=== PATIENT | male | born 1965 | race Caucasian/White ===

== ENCOUNTER 2023-08-11 19:05 | Emergency (ER) | payer BC ==
--- NOTE | 2023-08-11 19:11 | ED ---
Chest Pain HPI - General Stated Complaint: Chest Pain Time Seen by Provider: 08/11/23 19:06 Source: RN notes reviewed, old records reviewed Mode of arrival: EMS Limitations: no limitations - History of Present Illness Initial Comments: This is a 58-year-old male to the ER for evaluation today. Patient presents today for evaluation regards to s significant syncopal event. Patient passed out when receiving bad news that his father was recently diagnosed with cancer. Patient states he had a stressful few days and he came up to the hospital today without taking his home medications. Patient is very anxious here in the emergency department sweaty and short of breath also having chest pain MD Complaint: chest pain, other (Syncopal event) -: hour(s) Onset: during rest Pain Location: substernal, left chest Pain Radiation: none Severity: severe Severity scale (1-10): 9 Quality: tightness Consistency: constant Improves With: nothing Worsens With: nothing Context: recent illness Anginal Symptoms: sense of impending doom Other Symptoms: palpitations Treatments Prior to Arrival: none - Related Data Home Medications Medication Instructions Recorded Confirmed Atorvastatin [Lipitor] 80 mg PO DAILY 08/13/23 08/13/23 Cyclobenzaprine [Flexeril] 5 - 10 mg PO HS 08/13/23 08/13/23 Empagliflozin [Jardiance] 25 mg PO DAILY 08/13/23 08/13/23 Gabapentin 600 mg PO TID 08/13/23 08/13/23 INSULIN LISPRO (HumaLOG) [humaLOG] 10 units SQ AC-TID 08/13/23 08/13/23 Insulin NPH Human Isophane 40 unit SQ BID 08/13/23 08/13/23 [humuLIN N Kwikpen] Liraglutide [Victoza 3-Kamlesh] 1.8 mg PO DAILY 08/13/23 08/13/23 Lisinopril-Hctz 20-12.5 mg 1 tab PO DAILY 08/13/23 08/13/23 [Zestoretic 20-12.5] Metoprolol Tartrate [Lopressor] 25 mg PO BID 08/13/23 08/13/23 Omeprazole 20 mg PO DAILY 08/13/23 08/13/23 Tamsulosin HCl [Flomax] 0.4 mg PO DAILY 08/13/23 08/13/23 metFORMIN HCL 1,000 mg PO BID 08/13/23 08/13/23 methocarbamoL [Robaxin-750] 750 mg PO TID 08/13/23 08/13/23 oxyCODONE HCL [oxyCODONE HCL (IR)] 10 mg PO TID 08/13/23 08/13/23 traMADol HCL 50 mg PO Q4H PRN 08/13/23 08/13/23 Previous Rx's Medication Instructions Recorded Aspirin 81 mg PO DAILY #30 tab 08/16/23 Clopidogrel [Plavix] 75 mg PO DAILY #30 tablet 08/16/23 Ezetimibe [Zetia] 10 mg PO DAILY #30 tab 08/16/23 Allergies Allergy/AdvReac Type Severity Reaction Status Date / Time Penicillins Allergy Anaphylaxis Verified 08/13/23 17:43 Review of Systems ROS Statement: Those systems with pertinent positive or pertinent negative responses have been documented in the HPI. ROS Other: All systems not noted in ROS Statement are negative. EKG Findings - EKG Comments: EKG Findings:: EKG is sinus tachycardia 120 UT 165 QRS 89 QTc 498 - EKG Results: EKG: interpreted by NORMAN General Exam General appearance: alert, anxious, in distress Head exam: Present: atraumatic, normocephalic, normal inspection Eye exam: Present: normal appearance, PERRL, EOMI. Absent: scleral icterus, conjunctival injection, periorbital swelling ENT exam: Present: normal exam, mucous membranes moist Neck exam: Present: normal inspection. Absent: tenderness, meningismus, lymphadenopathy Respiratory exam: Present: normal lung sounds bilaterally. Absent: respiratory distress, wheezes, rales, rhonchi, stridor Cardiovascular Exam: Present: regular rate, normal rhythm, normal heart sounds. Absent: systolic murmur, diastolic murmur, rubs, gallop, clicks GI/Abdominal exam: Present: soft, normal bowel sounds. Absent: distended, tenderness, guarding, rebound, rigid Extremities exam: Present: normal inspection, full ROM, normal capillary refill. Absent: tenderness, pedal edema, joint swelling, calf tenderness Back exam: Present: normal inspection Neurological exam: Present: alert, oriented X3, CN II-XII intact Psychiatric exam: Present: normal affect, normal mood Skin exam: Present: warm, dry, intact, normal color. Absent: rash Course Vital Signs 08/11/23 08/11/23 08/11/23 19:06 20:11 22:37 Temperature 99 F Pulse Rate 134 H 102 H 94 Respiratory 20 16 17 Rate Blood Pressure 192/120 137/86 121/92 O2 Sat by Pulse 97 95 95 Oximetry - Reevaluation(s) Reevaluation #1: 08/11/23 19:39 Medical records reviewed Reevaluation #2: Patient has no change in symptoms here in the ER mildly improved chest pain Reevaluation #3: Patient informed of results and questions answered Reevaluation #4: Was pt. sent in by a medical professional or institution (, MAUREEN, DEVOPS SOLUTIONS ARCHITECT, urgent care, hospital, or senior care...) When possible be specific @ -no Did you speak to anyone other than the patient for history (EMS, parent, family, police, friend...)? What history was obtained from this source @ -no Did you review nursing and triage notes (agree or disagree)? Why? @ -agree Are old charts reviewed (outside hosp., previous admission, EMS record, old EKG, old radiological studies, urgent care reports/EKG's, senior care records)? Report findings @ -yes Differential Diagnosis (chest pain, altered mental status, abdominal pain women, abdominal pain men, vaginal bleeding, weakness, fever, dyspnea, syncope, headache, dizziness, GI bleed, back pain, seizure, CVA, palpatations, mental health, musculoskeletal)? @ -prior EKG interpreted by me (3pts min.). @ -yes X-rays interpreted by me (1pt min.). @ -yes negative for acute disease CT interpreted by me (1pt min.). @ -no U/S interpreted by me (1pt. min.). @ -no What testing was considered but not performed or refused? (CT, X-rays, U/S, labs)? Why? @ -none What meds were considered but not given or refused? Why? @ -none Did you discuss the management of the patient with other professionals (professionals i.e. MAUREEN Rodriguez, DEVOPS SOLUTIONS ARCHITECT, lab, RT, psych nurse, social problems specialist, divorce lawyer, teacher, commercial loan officer, medical case manager)? Give summary @ -no Was smoking cessation discussed for >3mins.? @ -no Was critical care preformed (if so, how long)? @ -no Were there social determinants of health that impacted care today? How? (Homelessness, low income, unemployed, alcoholism, drug addiction, transportation, low edu. Level, literacy, decrease access to med. care, [facility], rehab)? @ -none Was there de-escalation of care discussed even if they declined (Discuss DNR or withdrawal of care, Hospice)? DNR status @ -no What co-morbidities impacted this encounter? (DM, HTN, Smoking, COPD, CAD, Cancer, CVA, ARF, Chemo, Hep., AIDS, mental health diagnosis, sleep apnea, morbid obesity)? @ -none Was patient admitted / discharged? Hospital course, mention meds given and route, prescriptions, significant lab abnormalities, going to OR and other pertinent info. @ - 58 male to ER for evaluation of chest pain. Significant chest pain which is improved here in the ER, patient has normal testing and can be discharged home Discharge Undiagnosed new problem with uncertain prognosis? @ -no Drug Therapy requiring intensive monitoring for toxicity (Heparin, Nitro, Insulin, Cardizem)? @ -no Were any procedures done? @ -no Diagnosis/symptom? @ -Chest pain Acute, or Chronic, or Acute on Chronic? @ -Acute Uncomplicated (without systemic symptoms) or Complicated (systemic symptoms)? @ -Complicated Side effects of treatment? @ -no Exacerbation, Progression, or Severe Exacerbation? @ -exacerbation Poses a threat to life or bodily function? How? (Chest pain, [place], [place], pneumonia, PE, COPD, DKA, ARF, appy, cholecystitis, CVA, Diverticulitis, Homicidal, Suicidal, threat to staff... and all critical care pts) @ -yes with chest pain Reevaluation #5: Differential Chest Pain: Stable Angina, Unstable Angina, STEMI, NSTEMI Aortic Dissection, Pneumothorax, Musculoskeletal, Esophageal Spasm GERD, Cholecystitis, Pancreatitis, Zoster, this is not meant to be an all-inclusive list. Chest Pain MDM - MDM 58 male to ER for evaluation of chest pain. Significant chest pain which is improved here in the ER, patient has normal testing and can be discharged home Disposition Clinical Impression: Atypical chest pain, Chest pain, Syncope, Hyperglycemia Disposition: HOME SELF-CARE Condition: Fair Instructions (If sedation given, give patient instructions): Chest Pain (ED), Syncope (ED), Diabetic Hyperglycemia (ED) Is patient prescribed a controlled substance at d/c from ED?: No Referrals: Nonstaff,Physician [REFERRING] - 1-2 days Time of Disposition: 22:30
[2023-08-11 19:24] LABS: Basophils # (A) 0.1 k/uL (0-0.2); Basophils % (A) 1 %; Eosinophils # (A) 0.1 k/uL (0-0.7); Eosinophils % (A) 1 %; HGB 16.6 gm/dL (13.0-17.5); Lymphocytes # (A) 3.8 k/uL (1.0-4.8); Lymphocytes % (A) 47 %; MCH 30.5 pg (25.0-35.0); MCHC 31.8 g/dL (31.0-37.0); MCV 95.8 fL (80.0-100.0); Mean Platelet Volume 7.6; Monocytes # (A) 0.5 k/uL (0-1.0); Monocytes % (A) 6 %; Neutrophils # (A) 3.5 k/uL (1.3-7.7); Neutrophils % (A) 43 %; Platelet Count 208 k/uL (150-450); RBC 5.43 m/uL (4.30-5.90); RDW 13.3 % (11.5-15.5); WBC 8.1 k/uL (3.8-10.6)
[2023-08-11] MEDS: MORPHINE SULFATE 4 MG/ML SYRINGE IV STA (19:27)
[2023-08-11] MEDS: SODIUM CHLORIDE 0.9% 1,000 ML IV STA ×2 (19:28→22:24)
[2023-08-11] MEDS: LABETALOL 5 MG/ML VIAL MDV IVP STA (19:28)
[2023-08-11] MEDS: LORazepam 2 MG/ML INJ IV STA (19:28)
[2023-08-11 19:33] VITALS: TEMP 99
[2023-08-11 19:45] LABS: ALT 175 U/L (4-49); AST 97 U/L (17-59); African American GFR (CKD) >90 (>60 ml/min/1.73 sqM); Albumin 4.5 g/dL (3.5-5.0); Alkaline Phosphatase 226 U/L (38-126); Anion Gap 13 mmol/L; Blood Urea Nitrogen 20 mg/dL (9-20); Calcium 9.9 mg/dL (8.4-10.2); Carbon Dioxide 24 mmol/L (22-30); Chloride 97 mmol/L (98-107); Magnesium 1.6 mg/dL (1.6-2.3); Non-African American GFR(CKD) >90 (>60 ml/min/1.73 sqM); Phosphorus 4.1 mg/dL (2.5-4.5); Potassium 4.5 mmol/L (3.5-5.1); Sodium 134 mmol/L (137-145); Total Bilirubin 0.6 mg/dL (0.2-1.3); Total Protein 7.4 g/dL (6.3-8.2)
[2023-08-11 19:54] LABS: NT-Pro-B-Type Natriuretic Pept 108 pg/mL
[2023-08-11 19:56] LABS: Glucose 553 mg/dL (74-99)
[2023-08-11 20:12] LABS: INR 0.9 (<1.2); Partial Thromboplastin Time 22.6 sec (22.0-30.0); Prothrombin Time 9.9 sec (10.0-12.5)
--- NOTE | 2023-08-11 20:39 | CT ---
EXAMINATION TYPE: CT angio chest CT DLP: 742.3 mGycm, Automated exposure control for dose reduction was used. DATE OF EXAM: 08/11/2023 8:26 PM COMPARISON: None CLINICAL INDICATION:Male, 58 years old with history of cp; chest pain and collapse. TECHNIQUE/CONTRAST: CTA scan of the thorax is performed with IV Contrast, patient injected with 100ml mL of Isovue 370, M IP images are created and reviewed these are created on a separate workstation.. FINDINGS: Pulmonary Artery: There is no evidence for a filling defect within the pulmonary vasculature to sugge st acute pulmonary embolism. The pulmonary artery is of normal size. Lungs/Pleura: No evidence of focal consolidation, pleural effusion or pneumothorax. Mild centrilobula r emphysema changes are seen throughout the lungs. Right intrafissural lymph node series 411 image 80 . Airway: Large airways are patent. Heart: Heart is within normal limits for size. Increased density within the left anterior distending coronary artery bypass correlate is stent graft versus Atherosclerotic calcifications Vasculature: No evidence of aortic aneurysm. Mediastinum: No gross evidence of adenopathy. Musculoskeletal: Mild degenerative disc disease changes are present throughout the thoracolumbar spin e., partially visualized fixation hardware in the lower spine. Soft Tissues: Unremarkable. Lower neck: No significant findings. Upper Abdomen: Diffuse low-attenuation to the liver parenchyma.. IMPRESSION: 1. No evidence of pulmonary embolism. 2. Mild emphysema. 3. Hepatic steatosis. 4. Severe coronary artery atherosclerosis versus stent graft.
[2023-08-11 21:25] LABS: Appearance,Urine Clear (Clear); Bilirubin,Urine Negative (Negative); Blood,Urine Negative (Negative); Color,Urine Colorless; Glucose,Urine (UA) 4+ (Negative); Ketones,Urine Negative (Negative); Leukocyte Esterase,Urine Negative (Negative); Nitrite,Urine Negative (Negative); Protein,Urine Negative (Negative); Urobilinogen,Urine <2.0 mg/dL (<2.0)
[2023-08-11] MEDS: INSULIN REGULAR 100 UNIT/ML VIAL (IM/SQ) SQ ONE (22:30)
[2023-08-11] MEDS: INSULIN REGULAR 100 UNIT/ML VIAL (IV) IV ONE (22:32)
[2023-08-11 22:46] LABS: Glucose,Whole Blood 387 mg/dL (70-110)
[2023-08-11 22:51] VITALS: BP 121/92; PULSE 94; RESP 17
== END 2023-08-11 22:49 | disposition home or self-care (01) ==
LOC: EC 19:05
DX: R07.89 Other chest pain (principal); R55 Syncope and collapse; R73.9 Hyperglycemia, unspecified; R00.0 Tachycardia, unspecified; Z88.0 Allergy status to penicillin
CPT/HCPCS: 99285 ×2; 96374 ×2; 96375 ×2; 96361 ×2; 36415; 93005; 83880; 80053; 83735; 84100; 84484; 85025; 85610; 85730; 81003; 71275; J2060; J2270; Q9967

== ENCOUNTER 2023-08-13 15:49 | Observation (INO) | payer BC ==
[2023-08-13 15:54] LABS: Glucose,Whole Blood 136 mg/dL (70-110)
--- NOTE | 2023-08-13 16:07 | ED ---
Neuro HPI - General Chief Complaint: Neuro Symptoms/Deficit Stated Complaint: Neuro Time Seen by Provider: 08/13/23 16:03 Source: patient, RN notes reviewed Mode of arrival: ambulatory Limitations: no limitations - History of Present Illness Is the patient presenting with stroke symptoms?: Yes Initial Comments: 58-year-old male with history of heart disease with 3 stents who does not has been having chest pain over the last week or so who had a sudden onset about 15 minutes prior to arrival of slurred speech and right facial asymmetry and numbness to his right arm. 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 No focal weakness of his upper or lower extremities at this time. No prior history of stroke he states he is not on any blood thinners at this time. - Related Data Home Medications: Home Medications Medication Instructions Recorded Confirmed Atorvastatin [Lipitor] 80 mg PO DAILY 08/13/23 08/13/23 Cyclobenzaprine [Flexeril] 5 - 10 mg PO HS 08/13/23 08/13/23 Empagliflozin [Jardiance] 25 mg PO DAILY 08/13/23 08/13/23 Gabapentin 600 mg PO TID 08/13/23 08/13/23 INSULIN LISPRO (HumaLOG) [humaLOG] 10 units SQ AC-TID 08/13/23 08/13/23 Insulin NPH Human Isophane 40 unit SQ BID 08/13/23 08/13/23 [humuLIN N Luz] Liraglutide [Victoza 3-Kamlesh] 1.8 mg PO DAILY 08/13/23 08/13/23 Lisinopril-Hctz 20-12.5 mg 1 tab PO DAILY 08/13/23 08/13/23 [Zestoretic 20-12.5] Metoprolol Tartrate [Lopressor] 25 mg PO BID 08/13/23 08/13/23 Omeprazole 20 mg PO DAILY 08/13/23 08/13/23 Tamsulosin HCl [Flomax] 0.4 mg PO DAILY 08/13/23 08/13/23 metFORMIN HCL 1,000 mg PO BID 08/13/23 08/13/23 methocarbamoL [Robaxin-750] 750 mg PO TID 08/13/23 08/13/23 oxyCODONE HCL [oxyCODONE HCL (IR)] 10 mg PO TID 08/13/23 08/13/23 traMADol HCL 50 mg PO Q4H PRN 08/13/23 08/13/23 Allergies/Adverse Reactions: Allergies Allergy/AdvReac Type Severity Reaction Status Date / Time Penicillins Allergy Anaphylaxis Verified 08/13/23 17:43 Review of Systems ROS Statement: Those systems with pertinent positive or pertinent negative responses have been documented in the HPI. ROS Other: All systems not noted in ROS Statement are negative. General Exam - General Exam Comments Initial Comments: This is a well-developed well-nourished awake alert oriented x 4 male Limitations: no limitations General appearance: alert, anxious Head exam: Present: atraumatic, normocephalic, normal inspection Eye exam: Present: other (Right eye appears normal with extraocular motion intact pupils responsive to light) ENT exam: Present: normal exam, other Neck exam: Present: normal inspection, full ROM, other Respiratory exam: Present: normal lung sounds bilaterally. Absent: respiratory distress, wheezes, rales, rhonchi, stridor Cardiovascular Exam: Present: regular rate, normal rhythm, normal heart sounds. Absent: systolic murmur, diastolic murmur, rubs, gallop, clicks GI/Abdominal exam: Present: soft, normal bowel sounds. Absent: distended, tenderness, guarding, rebound, rigid Rectal exam: Present: deferred Extremities exam: Present: normal inspection, full ROM, normal capillary refill. Absent: tenderness, pedal edema, joint swelling, calf tenderness Back exam: Present: normal inspection Neurological exam: Present: alert, oriented X3. Absent: CN II-XII intact Psychiatric exam: Present: anxious Skin exam: Present: warm, dry, intact, normal color. Absent: rash Stroke MDM - Lab Data Result diagrams: 08/13/23 16:12 08/13/23 16:12 Lab Results 08/13/23 08/13/23 08/13/23 Range/Units 15:52 16:12 16:12 WBC 9.1 (3.8-10.6) k/uL RBC 5.62 (4.30-5.90) m/uL Hgb 16.9 (13.0-17.5) gm/dL Hct 52.6 (39.0-53.0) % MCV 93.4 (80.0-100.0) fL MCH 30.0 (25.0-35.0) pg MCHC 32.2 (31.0-37.0) g/dL RDW 13.5 (11.5-15.5) % Plt Count 218 (150-450) k/uL MPV 7.5 Neutrophils % 57 % Lymphocytes % 33 % Monocytes % 6 % Eosinophils % 1 % Basophils % 1 % Neutrophils # 5.2 (1.3-7.7) k/uL Lymphocytes # 3.0 (1.0-4.8) k/uL Monocytes # 0.5 (0-1.0) k/uL Eosinophils # 0.1 (0-0.7) k/uL Basophils # 0.1 (0-0.2) k/uL PT 10.3 (10.0-12.5) sec INR 0.9 (<1.2) APTT 22.2 (22.0-30.0) sec Sodium (137-145) mmol/L Potassium (3.5-5.1) mmol/L Chloride (98-107) mmol/L Carbon Dioxide (22-30) mmol/L Anion Gap mmol/L BUN (9-20) mg/dL Creatinine (0.66-1.25) mg/dL Est GFR (CKD-EPI)AfAm (>60 ml/min/1.73 sqM) Est GFR (CKD-EPI)NonAf (>60 ml/min/1.73 sqM) Glucose (74-99) mg/dL POC Glucose (mg/dL) 136 H (70-110) mg/dL POC Glu Motion Picture Camera Lens Technician ID Kenrick Bishop Calcium (8.4-10.2) mg/dL Total Bilirubin (0.2-1.3) mg/dL AST (17-59) U/L ALT (4-49) U/L Alkaline Phosphatase (38-126) U/L Creatine Kinase (55-170) U/L Troponin I (0.000-0.034) ng/mL Total Protein (6.3-8.2) g/dL Albumin (3.5-5.0) g/dL 08/13/23 08/13/23 Range/Units 16:12 16:12 WBC (3.8-10.6) k/uL RBC (4.30-5.90) m/uL Hgb (13.0-17.5) gm/dL Hct (39.0-53.0) % MCV (80.0-100.0) fL MCH (25.0-35.0) pg MCHC (31.0-37.0) g/dL RDW (11.5-15.5) % Plt Count (150-450) k/uL MPV Neutrophils % % Lymphocytes % % Monocytes % % Eosinophils % % Basophils % % Neutrophils # (1.3-7.7) k/uL Lymphocytes # (1.0-4.8) k/uL Monocytes # (0-1.0) k/uL Eosinophils # (0-0.7) k/uL Basophils # (0-0.2) k/uL PT (10.0-12.5) sec INR (<1.2) APTT (22.0-30.0) sec Sodium 137 (137-145) mmol/L Potassium 4.2 (3.5-5.1) mmol/L Chloride 102 (98-107) mmol/L Carbon Dioxide 25 (22-30) mmol/L Anion Gap 10 mmol/L BUN 16 (9-20) mg/dL Creatinine 0.80 (0.66-1.25) mg/dL Est GFR (CKD-EPI)AfAm >90 (>60 ml/min/1.73 sqM) Est GFR (CKD-EPI)NonAf >90 (>60 ml/min/1.73 sqM) Glucose 144 H (74-99) mg/dL POC Glucose (mg/dL) (70-110) mg/dL POC Glu Motion Picture Camera Lens Technician ID Calcium 10.3 H (8.4-10.2) mg/dL Total Bilirubin 0.6 (0.2-1.3) mg/dL AST 211 H (17-59) U/L ALT 231 H (4-49) U/L Alkaline Phosphatase 163 H (38-126) U/L Creatine Kinase 193 H (55-170) U/L Troponin I 0.075 H* (0.000-0.034) ng/mL Total Protein 7.4 (6.3-8.2) g/dL Albumin 4.5 (3.5-5.0) g/dL - NIH Stroke Scale 1a. Level of Consciousness: (0) alert 1b. LOC Questions: (0) answers correctly 1c. LOC Commands: (0) performs tasks correctly 2. Best Gaze: (0) normal 3. Visual: (0) no visual loss 4. Facial Palsy: (2) partial paralysis 5a. Motor Arm Left: (0) no drift 5b. Motor Arm Right: (0) no drift 6a. Motor Leg Left: (0) no drift 6b. Motor Leg Right: (0) no drift 7. Limb Ataxia: (0) absent 8. Sensory: (0) normal 9. Best Language: (1) mild/moderate aphasia 10. Dysarthria: (0) normal 11. Extinction/Inattention: (0) no abnormality - Medical Decision Making The patient is getting improvement in his symptoms the presentation appears to be consistent with a TIA I had previously discussed the case with Dr. Peralta and the patient is not a thrombolytic candidate. I did discuss the case with Paulina broussard for Dr. Salas the patient will be admitted with neurological consultation and oral medication treatment. Was pt. sent in by a medical professional or institution (, PA, PAYLOADER OPERATOR, urgent care, hospital, or residential...) When possible be specific @ -No Did you speak to anyone other than the patient for history (EMS, parent, family, police, friend...)? What history was obtained from this source @ -No Did you review nursing and triage notes (agree or disagree)? Why? @ -I reviewed and agree with nursing and triage notes Were old charts reviewed (outside hosp., previous admission, EMS record, old EKG, old radiological studies, urgent care reports/EKG's, residential records)? Report findings @ -No old charts were reviewed Differential Diagnosis (chest pain, altered mental status, abdominal pain women, abdominal pain men, vaginal bleeding, weakness, fever, dyspnea, syncope, headache, dizziness, GI bleed, back pain, seizure, CVA, palpatations, mental health, musculoskeletal)? @ -CVA, TIA EKG interpreted by me (3pts min.). @ -As above EKG interpreted by me sinus tachycardia 115 OK interval 177 QRS duration 74 QT/QTc 438/506 nonspecific T wave configuration X-rays interpreted by me (1pt min.). @ -X-ray interpreted by me no evidence of acute processes seen increased markings noted. CT interpreted by me (1pt min.). @ -CT scan with and without contrast interpreted by me no evidence of significant stenosis no acute processes] U/S interpreted by me (1pt. min.). @ -None done What testing was considered but not performed or refused? (CT, X-rays, U/S, labs)? Why? @ -None What meds were considered but not given or refused? Why? @ -None Did you discuss the management of the patient with other professionals ( professionals i.e. , PA, PAYLOADER OPERATOR, lab, RT, psych nurse, social media marketer, digester capper, teacher, title officer, casework supervisor)? Give summary @ -Dr. Peralta will SOV for Dr. Salas's service Was smoking cessation discussed for >3mins.? @ -No Was critical care preformed (if so, how long)? @ -39 minutes Were there social determinants of health that impacted care today? How? (Homelessness, low income, unemployed, alcoholism, drug addiction, transportation, low edu. Level, literacy, decrease access to med. care, detention, rehab)? @ -No Was there de-escalation of care discussed even if they declined (Discuss DNR or withdrawal of care, Hospice)? DNR status @ -No What co-morbidities impacted this encounter? (DM, HTN, Smoking, COPD, CAD, Cancer, CVA, ARF, Chemo, Hep., AIDS, mental health diagnosis, sleep apnea, morbid obesity)? @ -History of coronary artery disease Was patient admitted / discharged? Hospital course, mention meds given and route, prescriptions, significant lab abnormalities, going to OR and other pertinent info. @ -Hospital course the patient was admitted for inpatient evaluation Undiagnosed new problem with uncertain prognosis? @ -No Drug Therapy requiring intensive monitoring for toxicity (Heparin, Nitro, Insulin, Cardizem)? @ -No Were any procedures done? @ -No Diagnosis/symptom? @ -Acute TIA Acute, or Chronic, or Acute on Chronic? @ -Acute Uncomplicated (without systemic symptoms) or Complicated (systemic symptoms)? @ -Default Side effects of treatment? @ -No Exacerbation, Progression, or Severe Exacerbation? @ -No Poses a threat to life or bodily function? How? (Chest pain, [place], [place], pneumonia, PE, COPD, DKA, ARF, appy, cholecystitis, CVA, Diverticulitis, Homicidal, Suicidal, threat to staff... and all critical care pts) @ -Potential, TIA - Radiology Data interpreted by me: CT interpreted by me no evidence of acute obstructive process no mass effect. - EKG Data -: EKG Interpreted by Me EKG shows normal: sinus rhythm Past Medical History Past Medical History: Diabetes Mellitus, Hypertension Additional Past Surgical History / Comment(s): 2 back surgeries, Smoking Status: Never smoker Past Alcohol Use History: Occasional Past Drug Use History: None Reported Course Vital Signs 08/13/23 08/13/23 08/13/23 15:52 15:55 16:10 Temperature 98.2 F Pulse Rate 115 H 112 H 110 H Respiratory 18 18 18 Rate Blood Pressure 149/96 150/106 O2 Sat by Pulse 96 96 Oximetry 08/13/23 08/13/23 08/13/23 16:25 16:40 16:55 Temperature Pulse Rate 111 H 110 H 106 H Respiratory 18 18 18 Rate Blood Pressure 140/89 137/86 O2 Sat by Pulse 96 98 96 Oximetry 08/13/23 08/13/23 08/13/23 17:05 17:25 17:36 Temperature Pulse Rate 105 H 105 H 104 H Respiratory 18 18 18 Rate Blood Pressure 122/80 118/85 O2 Sat by Pulse 95 94 L 96 Oximetry 08/13/23 08/13/23 08/13/23 17:40 17:55 18:30 Temperature Pulse Rate 102 H 106 H 104 H Respiratory 18 18 18 Rate Blood Pressure 140/89 139/86 O2 Sat by Pulse 95 96 Oximetry 08/13/23 08/13/23 18:55 18:57 Temperature Pulse Rate 103 H 120 H Respiratory 18 18 Rate Blood Pressure 139/99 O2 Sat by Pulse 94 L 94 L Oximetry - Reevaluation(s) Reevaluation #1: 08/13/23 19:12 I did reevaluate the patient multiple occasions he is getting improvement in his symptoms. Critical Care Time Critical Care Time: Yes Total Critical Care Time: 39 Disposition Clinical Impression: Transient cerebral ischemia Disposition: ADMITTED IP TO THIS [facility] Condition: Stable Referrals: None,Stated [Primary Care Provider] - 1-2 days Decision Date: 08/13/23 Decision Time: 19:19
--- NOTE | 2023-08-13 16:25 | CT ---
EXAMINATION TYPE: CODE STROKE: CT brain wo contr DATE OF EXAM: 08/13/2023 COMPARISON: None available. HISTORY: Code stroke. CT DLP: 1182.4 mGycm Automated exposure control for dose reduction was used. FINDINGS: There is no acute intracranial hemorrhage, mass effect, or midline shift identified. The ventricles and sulci are within normal limits in size. 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 IMPRESSION: No acute intracranial hemorrhage, mass effect, or midline shift is seen.
[2023-08-13 16:36] LABS: Basophils # (A) 0.1 k/uL (0-0.2); Basophils % (A) 1 %; Eosinophils # (A) 0.1 k/uL (0-0.7); Eosinophils % (A) 1 %; HCT 52.6 % (39.0-53.0); HGB 16.9 gm/dL (13.0-17.5); Lymphocytes % (A) 33 %; MCHC 32.2 g/dL (31.0-37.0); MCV 93.4 fL (80.0-100.0); Mean Platelet Volume 7.5; Monocytes # (A) 0.5 k/uL (0-1.0); Monocytes % (A) 6 %; Neutrophils # (A) 5.2 k/uL (1.3-7.7); Neutrophils % (A) 57 %; Platelet Count 218 k/uL (150-450); RBC 5.62 m/uL (4.30-5.90); RDW 13.5 % (11.5-15.5); WBC 9.1 k/uL (3.8-10.6)
[2023-08-13] MEDS: ASPIRIN 81 MG PO STA (16:36)
[2023-08-13 16:49] LABS: INR 0.9 (<1.2); Partial Thromboplastin Time 22.2 sec (22.0-30.0); Prothrombin Time 10.3 sec (10.0-12.5)
--- NOTE | 2023-08-13 16:53 | XR ---
EXAMINATION TYPE: XR chest 2V DATE OF EXAM: 08/13/2023 4:48 PM CLINICAL INDICATION:Male, 58 years old with history of altered mental status; [facility] COMPARISON: None TECHNIQUE: XR chest 2V Frontal and lateral views of the chest. FINDINGS: Lungs/Pleura: Low lung volumes are present. There is no evidence of pleural effusion, focal consolida tion, or pneumothorax. Pulmonary vascularity: Unremarkable. Heart/mediastinum: Cardiomediastinal silhouette is unremarkable. Musculoskeletal: No acute osseous pathology. Other findings: None IMPRESSION: Low lung volumes with a generalized hazy appearance which could represent atelectasis versus pulmonar y edema correlate with serum BNP.
[2023-08-13 16:56] LABS: ALT 231 U/L (4-49); AST 211 U/L (17-59); African American GFR (CKD) >90 (>60 ml/min/1.73 sqM); Albumin 4.5 g/dL (3.5-5.0); Alkaline Phosphatase 163 U/L (38-126); Anion Gap 10 mmol/L; Blood Urea Nitrogen 16 mg/dL (9-20); Calcium 10.3 mg/dL (8.4-10.2); Carbon Dioxide 25 mmol/L (22-30); Chloride 102 mmol/L (98-107); Creatine Kinase 193 U/L (55-170); Glucose 144 mg/dL (74-99); Non-African American GFR(CKD) >90 (>60 ml/min/1.73 sqM); Potassium 4.2 mmol/L (3.5-5.1); Sodium 137 mmol/L (137-145); Total Bilirubin 0.6 mg/dL (0.2-1.3); Total Protein 7.4 g/dL (6.3-8.2)
--- NOTE | 2023-08-13 16:56 | CT ---
EXAMINATION TYPE: CT angio head neck CT DLP: 858 mGycm, Automated exposure control for dose reduction was used. DATE OF EXAM: 08/13/2023 4:36 PM COMPARISON: None. CLINICAL INDICATION:Male, 58 years old with history of Neuro deficit, acute, stroke suspected; PHH, C ode stroke TECHNIQUE: Axially acquired helical CT angiogram of the head and neck was obtained with contrast. Axi al images are supplemented with 3D reconstructions and MIP images which were post-processed at an in dependent workstation. NASCET criteria used. Contrast used:65 ml mL of Isovue 370 with IV Contrast, Oral contrast used: None. FINDINGS: CTA HEAD: No evidence of acute intracranial hemorrhage, mass effect, or midline shift. The ventricles, sulci, a nd cisterns are unremarkable. Atherosclerosis of the intracranial vasculature. Postsurgical changes t o the left globe. The visualized portions of the internal carotid arteries, middle cerebral arteries, anterior cerebral arteries, and posterior cerebral arteries are patent. The basilar and vertebral arteries are patent. CTA NECK: Right Carotid System: The common carotid and external carotid arteries are patent. There is less than 25% stenosis at the c arotid bifurcation secondary to calcified/noncalcified plaque. The rest of the internal carotid arter y is patent. Left Carotid System: The common carotid and external carotid arteries are patent. There is less than 25% stenosis at the c arotid bifurcation secondary to calcified/noncalcified plaque. The rest of the internal carotid arter y is patent. Vertebral arteries are patent without evidence hemodynamically significant stenosis. There is a three-vessel aortic arch. The origins of the great vessels are patent. No evidence of hemo dynamically significant stenosis. Upper thorax: IMPRESSION: 1. No evidence of dissection of the cervical internal carotid arteries or vertebral arteries or any e vidence of significant stenosis at the carotid bifurcations. 2. No evidence of intracranial high-grade stenosis or intracranial aneurysm.
[2023-08-13] MEDS: HYDROmorphone 1 MG/ML 1 ML SYRINGE IVP STA (18:59)
[2023-08-13] MEDS ORDERED: DEXTROSE 50% SYRINGE 50 ML IVP PRN ×2 (19:50)
[2023-08-13] MEDS ORDERED: INSULIN NPH 100 UNIT/ML 10 ML VIAL SQ SCH (21:00)
[2023-08-13 21:33] LABS: Glucose,Whole Blood 102 mg/dL (70-110)
[2023-08-13] MEDS: INSULIN ASPART (NovoLOG) 100 UNIT/ML VIAL SQ SCH (21:34)
[2023-08-13] MEDS: methocarbamoL 750 MG TAB PO SCH (21:43)
[2023-08-13] MEDS: METOPROLOL TARTRATE 25 MG TAB PO SCH (21:44)
[2023-08-13] MEDS: CYCLOBENZAPRINE 5 MG TAB PO SCH (21:44)
[2023-08-13] MEDS: metFORMIN 500 MG TAB PO SCH (21:44)
[2023-08-13] MEDS: GABAPENTIN 300 MG CAP PO SCH (21:45)
[2023-08-13] MEDS: CLOPIDOGREL 75 MG TAB PO STA (21:48)
[2023-08-13] MEDS: traMADol 50 MG TAB PO PRN (23:31)
[2023-08-14 06:16] LABS: Glucose,Whole Blood 174 mg/dL (70-110)
[2023-08-14] MEDS: INSULIN ASPART (NovoLOG) 100 UNIT/ML VIAL SQ SCH (06:48)
[2023-08-14] MEDS: PANTOPRAZOLE 40 MG TABLET PO SCH (08:38)
[2023-08-14] MEDS: TAMSULOSIN 0.4 MG CAP.ER.24H PO SCH (08:38)
[2023-08-14] MEDS: ATORVASTATIN 80 MG TAB PO SCH (08:38)
[2023-08-14] MEDS: DAPAGLIFLOZIN PROPANEDIOL 10 MG TABLET PO SCH (08:38)
[2023-08-14] MEDS: NON FORMULARY DRUG (Liraglutide [Victoza 3-Pak] 0.6 MG/0.1 ML Ml) PO SCH (08:39)
[2023-08-14] MEDS: CLOPIDOGREL 75 MG TAB PO SCH (08:39)
[2023-08-14] MEDS: LISINOPRIL-HCTZ 20-12.5 MG 1 EACH TAB PO SCH (09:38)
[2023-08-14 10:28] LABS: ALT 262 U/L (4-49); AST 212 U/L (17-59); African American GFR (CKD) >90 (>60 ml/min/1.73 sqM); Alkaline Phosphatase 138 U/L (38-126); Anion Gap 7 mmol/L; Blood Urea Nitrogen 14 mg/dL (9-20); Calcium 9.7 mg/dL (8.4-10.2); Carbon Dioxide 25 mmol/L (22-30); Chloride 105 mmol/L (98-107); Glucose 152 mg/dL (74-99); Non-African American GFR(CKD) >90 (>60 ml/min/1.73 sqM); Sodium 137 mmol/L (137-145); Total Bilirubin 0.8 mg/dL (0.2-1.3); Total Protein 6.9 g/dL (6.3-8.2)
[2023-08-14 10:37] LABS: Potassium 4.5 mmol/L (3.5-5.1)
[2023-08-14 11:24] LABS: Glucose,Whole Blood 244 mg/dL (70-110)
--- NOTE | 2023-08-14 13:07 | P.CNNES ---
History of Present Illness Consult date: 08/14/23 Requesting physician: Raciel Galvan Reason for Consult: tia History of Present Illness: This is an 79-year-old gentleman presented because of speech difficulty. He stated that his symptoms began yesterday around 3 PM in the afternoon and he was having difficulty getting his words out and the the words were coming out wrong. He was also slow talking. He denies any focal weakness, any difficulty swallowing, any numbness, and you a worsening of vision. Patient denies any history of stroke in the past. He is taking aspirin 81 mg. A she states he also takes atorvastatin but does not recall the dose. He feels his speech has improved but feels still somewhat slow talking. He has history of diabetes, hypertension, coronary artery disease status post stent. He also has left the eye ocular answer and had the removal of the eye result. Some of the workup during his hospital visit consisted of: Initial serum glucose is 144 Calcium 7.3 AST of 211 and ALT of 233 CK level is [address] of the head is reported as no acute intracranial hemorrhage, mass effect or midline shift is seen. I personally reviewed CT head and agree with report. CT angiography of the head and neck it is reported as no evidence of dissection of cervical internal carotid artery or vertebral arteries or any evidence of significant stenosis at the carotid bifurcation. No evidence of intracranial high-grade stenosis or intracranial aneurysm. NIH stroke scale in the ED is a 3. 2 facial paresis and 1 for language. It is seems there is improvement in the symptoms. A stroke code was activated that by the ED team. They spoke with Dr. Linder, stroke attending who recommended no IV thrombolytic since there is improvement in the symptoms and the risks outweigh the benefits. Review of Systems Review of system: The 12 point system was reviewed and apparent positive and negative per HPI. Past Medical History Past Medical History: Diabetes Mellitus, Hypertension History of Any Multi-Drug Resistant Organisms: None Reported Past Surgical History: Adenoidectomy, Heart Catheterization With Stent, Ton sillectomy Additional Past Surgical History / Comment(s): 2 back surgeries, occular melanoma, stents x3 Past Anesthesia/Blood Transfusion Reactions: No Reported Reaction Date of Last Stent Placement:: 08/30/2017 Past Psychological History: No Psychological Hx Reported Smoking Status: Former smoker Past Alcohol Use History: Occasional Past Drug Use History: None Reported Medications and Allergies Home Medications Medication Instructions Recorded Confirmed Type Atorvastatin [Lipitor] 80 mg PO DAILY 08/13/23 08/13/23 History Cyclobenzaprine [Flexeril] 5 - 10 mg PO HS 08/13/23 08/13/23 History Empagliflozin [Jardiance] 25 mg PO DAILY 08/13/23 08/13/23 History Gabapentin 600 mg PO TID 08/13/23 08/13/23 History INSULIN LISPRO (HumaLOG) [humaLOG] 10 units SQ AC-TID 08/13/23 08/13/23 History Insulin NPH Human Isophane 40 unit SQ BID 08/13/23 08/13/23 History [humuLIN N Kwikpen] Liraglutide [Victoza 3-Kamlesh] 1.8 mg PO DAILY 08/13/23 08/13/23 History Lisinopril-Hctz 20-12.5 mg 1 tab PO DAILY 08/13/23 08/13/23 History [Zestoretic 20-12.5] Metoprolol Tartrate [Lopressor] 25 mg PO BID 08/13/23 08/13/23 History Omeprazole 20 mg PO DAILY 08/13/23 08/13/23 History Tamsulosin HCl [Flomax] 0.4 mg PO DAILY 08/13/23 08/13/23 History metFORMIN HCL 1,000 mg PO BID 08/13/23 08/13/23 History methocarbamoL [Robaxin-750] 750 mg PO TID 08/13/23 08/13/23 History oxyCODONE HCL [oxyCODONE HCL (IR)] 10 mg PO TID 08/13/23 08/13/23 History traMADol HCL 50 mg PO Q4H PRN 08/13/23 08/13/23 History Allergies Allergy/AdvReac Type Severity Reaction Status Date / Time Penicillins Allergy Anaphylaxis Verified 08/13/23 17:43 Physical Examination - Vital Signs Vital Signs: Vital Signs Temp Pulse Pulse Resp BP BP Pulse Ox 08/14/23 11:38 97.8 F 83 18 106/72 94 L 08/14/23 09:36 90 112/77 95 08/14/23 08:00 98.4 F 95 18 152/95 97 08/14/23 04:00 98.3 F 95 19 153/89 96 08/14/23 00:00 98.2 F 92 19 141/90 92 L 08/13/23 19:44 103 H 12 126/97 95 08/13/23 19:21 71 18 117/72 96 08/13/23 18:57 120 H 18 94 L 08/13/23 18:55 103 H 18 139/99 94 L 08/13/23 18:30 104 H 18 08/13/23 17:55 106 H 18 139/86 96 08/13/23 17:40 102 H 18 140/89 95 08/13/23 17:36 104 H 18 96 08/13/23 17:25 105 H 18 118/85 94 L 08/13/23 17:05 105 H 18 122/80 95 08/13/23 16:55 106 H 18 137/86 96 08/13/23 16:40 110 H 18 98 08/13/23 16:25 111 H 18 140/89 96 08/13/23 16:10 110 H 18 08/13/23 15:55 112 H 18 150/106 96 08/13/23 15:52 98.2 F 115 H 18 149/96 96 Intake and Output 08/13/23 08/14/23 08/14/23 22:59 06:59 14:59 Other: Voiding Method Toilet # Voids 2 Weight 121 kg 121 kg GENERAL: The patient is sitting at side of bed and is not in acute distress. NEUROLOGICAL: Higher mental function: The patient is awake, alert, oriented to self, place and time. Patient is following commands. No aphasia and no neglect. Cranial nerves: Left eye is removed from prior cancer. The pupil on right eye is round, 3-4mm and reactive to light. Visual field on right eye is full to confrontation. EOM on right is normal and no nystagmus. Facial sensation is normal to touch throughout. The facial strength is normal throughout. Hearing is normal bilaterally to hand rub. Tongue is midline and moved [id number] without any difficulty. No dysarthria is noted. Shoulder shrug is normal bilaterally. Motor: The strength is 5 over 5 throughout. Normal tone and bulk. Cerebellum: Normal finger to nose bilaterally. Sensation: Sensation is normal to touch throughout. Reflexes (right/left): 2+ throughout. Plantars are mute bilaterally. Results - Laboratory Findings CBC and BMP: 08/13/23 16:12 08/14/23 08:00 Abnormal Lab Findings: Abnormal Labs 08/13/23 08/13/23 08/13/23 15:52 16:12 16:12 Glucose 144 H POC Glucose (mg/dL) 136 H Calcium 10.3 H AST 211 H ALT 231 H Alkaline Phosphatase 163 H Creatine Kinase 193 H Troponin I 0.075 H* 08/14/23 08/14/23 08/14/23 06:14 08:00 11:23 Glucose 152 H POC Glucose (mg/dL) 174 H 244 H Calcium AST 212 H ALT 262 H Alkaline Phosphatase 138 H Creatine Kinase Troponin I Assessment and Plan Assessment: This is a 58 y/o woman who presents because of expressive aphasia. In the ED he had NIH stroke scale of 3 for facial weakness and language which she improved. No IV thrombolytic since there is improvement in his symptoms. Transient expressive aphasia with facial weakness likely due to transient is chemic attack Mildly elevated LFT's: unknown exact cause. He stated that he was told that he had the lesion in the liver and him not sure if this is the cause According to patient he has history of small lesion in the liver as well as the long there were very small in the past: Unsure if they were benign vs mets vs other process History of left ocular cancer status post resection Diabetes mellitus Hypertension History of coronary artery disease status post stent Former tobacco use Plan: I ordered MRI the brain with and without to rule out any stroke versus any mass/ metastases especially with a history of the cancer. I refilled his home dose of aspirin 81mg. In the ED patient was given aspirin 324 once and I spoke with the ED attending and the patient received 300 mg Plavix once and then started on Plavix 75 mg daily. Patient was resumed home Lipitor 80 mg daily. 2-D echo was ordered, hemoglobin A1c, lipid panel and gallbladder are ordered by the primary team is pending I ordered the ammonia level Continue neuro checks Cardiac monitoring PT OT and [employer]ICE are consulted We'll defer the rest of the medical management to primary team For DVT prophylaxis I started the patient on subcu heparin 5000 units every 12 hours. The plan discussed with the patient and his nurse Thank you consultation Time with Patient: Greater than 30
[2023-08-14] MEDS: ASPIRIN 81 MG PO SCH (13:56)
--- NOTE | 2023-08-14 14:33 | P.HPIM ---
History of Present Illness Patient is admitted for possibles speech problems and nonfocal weakness. CT of the head did not show any significant abnormality CT angio of the head and neck did not show any significant abnormality either patient apparently has facial paralysis and speech problem because of which she had a NIH score of 3 in ER patient although does not have any such symptoms at this time patient was admitted with neurology MRI was ordered. Patient first set of troponin slightly elevated to 0.075 without any EKG changes. Chest x-ray showed some cephalization serum BNP is only 43. Patient has elevated liver enzymes with AST of around 212 and ALT of 262. Patient denies any abdominal pain denies any alcohol abuse history. Patient denies any hepatitis history REVIEW OF SYSTEMS: CONSTITUTIONAL: No fever, no malaise, no fatigue. HEENT: No recent visual problems or hearing problems. Denied any sore throat. CARDIOVASCULAR: No chest pain, orthopnea, PND, no palpitations, no syncope. PULMONARY: No shortness of breath, no cough, no hemoptysis. GASTROINTESTINAL: No diarrhea, no nausea, no vomiting, no abdominal pain. NEUROLOGICAL: No headaches. As mentioned in HPI HEMATOLOGICAL: Denies any bleeding or petechiae. GENITOURINARY: Denies any burning micturition, frequency, or urgency. MUSCULOSKELETAL/RHEUMATOLOGICAL: Denies any joint pain, swelling, or any muscle pain. ENDOCRINE: Denies any polyuria or polydipsia. The rest of the 14-point review of systems is negative. PHYSICAL EXAMINATION: GENERAL: The patient is alert and oriented x3, not in any acute distress. Well developed, well nourished. HEENT: Pupils are round and equally reacting to light. EOMI. No scleral icterus. No conjunctival pallor. Normocephalic, atraumatic. No pharyngeal erythema. No thyromegaly. CARDIOVASCULAR: S1 and S2 present. No murmurs, rubs, or gallops. PULMONARY: Chest is clear to auscultation, no wheezing or crackles. ABDOMEN: Soft, nontender, nondistended, normoactive bowel sounds. No palpable organomegaly. MUSCULOSKELETAL: No joint swelling or deformity. EXTREMITIES: No cyanosis, clubbing, or pedal edema. NEUROLOGICAL: Gross neurological examination did not reveal any focal deficits. SKIN: No rashes. Assessment and plan Transient expressive aphasia and patient is undergoing workup for stroke continue with aspirin physical therapy occupational therapy and speech therapy evaluation 2D echocardiogram will be obtained -Elevated LFTs will obtain an ultrasound of the liver gallbladder, hepatitis panel may be drug-induced liver injury from gabapentin teen and some other medications he is taking including Lipitor -Mild troponin elevation etiology is not clear repeating 2 more sets of troponins Type 2 diabetes mellitus patient resumed on home medications -Coronary artery disease -Hypertension DVT prophylaxis: Subcutaneous Past Medical History Past Medical History: Diabetes Mellitus, Hypertension History of Any Multi-Drug Resistant Organisms: None Reported Past Surgical History: Adenoidectomy, Heart Catheterization With Stent, Tonsillectomy Additional Past Surgical History / Comment(s): 2 back surgeries, occular melanoma, stents x3 Past Anesthesia/Blood Transfusion Reactions: No Reported Reaction Date of Last Stent Placement:: 08/30/2017 Past Psychological History: No Psychological Hx Reported Smoking Status: Former smoker Past Alcohol Use History: Occasional Past Drug Use History: None Reported Medications and Allergies Home Medications Medication Instructions Recorded Confirmed Type Atorvastatin [Lipitor] 80 mg PO DAILY 08/13/23 08/13/23 History Cyclobenzaprine [Flexeril] 5 - 10 mg PO HS 08/13/23 08/13/23 History Empagliflozin [Jardiance] 25 mg PO DAILY 08/13/23 08/13/23 History Gabapentin 600 mg PO TID 08/13/23 08/13/23 History INSULIN LISPRO (HumaLOG) [humaLOG] 10 units SQ AC-TID 08/13/23 08/13/23 History Insulin NPH Human Isophane 40 unit SQ BID 08/13/23 08/13/23 History [humuLIN N Kwikpen] Liraglutide [Victoza 3-Kamlesh] 1.8 mg PO DAILY 08/13/23 08/13/23 History Lisinopril-Hctz 20-12.5 mg 1 tab PO DAILY 08/13/23 08/13/23 History [Zestoretic 20-12.5] Metoprolol Tartrate [Lopressor] 25 mg PO BID 08/13/23 08/13/23 History Omeprazole 20 mg PO DAILY 08/13/23 08/13/23 History Tamsulosin HCl [Flomax] 0.4 mg PO DAILY 08/13/23 08/13/23 History metFORMIN HCL 1,000 mg PO BID 08/13/23 08/13/23 History methocarbamoL [Robaxin-750] 750 mg PO TID 08/13/23 08/13/23 History oxyCODONE HCL [oxyCODONE HCL (IR)] 10 mg PO TID 08/13/23 08/13/23 History traMADol HCL 50 mg PO Q4H PRN 08/13/23 08/13/23 History Allergies Allergy/AdvReac Type Severity Reaction Status Date / Time Penicillins Allergy Anaphylaxis Verified 08/13/23 17:43 Physical Exam Vitals: Vital Signs Temp Pulse Pulse Resp BP BP Pulse Ox 08/14/23 11:38 97.8 F 83 18 106/72 94 L 08/14/23 09:36 90 112/77 95 08/14/23 08:00 98.4 F 95 18 152/95 97 08/14/23 04:00 98.3 F 95 19 153/89 96 08/14/23 00:00 98.2 F 92 19 141/90 92 L 08/13/23 19:44 103 H 12 126/97 95 08/13/23 19:21 71 18 117/72 96 08/13/23 18:57 120 H 18 94 L 08/13/23 18:55 103 H 18 139/99 94 L 08/13/23 18:30 104 H 18 08/13/23 17:55 106 H 18 139/86 96 08/13/23 17:40 102 H 18 140/89 95 08/13/23 17:36 104 H 18 96 08/13/23 17:25 105 H 18 118/85 94 L 08/13/23 17:05 105 H 18 122/80 95 08/13/23 16:55 106 H 18 137/86 96 08/13/23 16:40 110 H 18 98 08/13/23 16:25 111 H 18 140/89 96 08/13/23 16:10 110 H 18 08/13/23 15:55 112 H 18 150/106 96 08/13/23 15:52 98.2 F 115 H 18 149/96 96 Intake and Output 08/13/23 08/14/23 08/14/23 22:59 06:59 14:59 Other: Voiding Method Toilet # Voids 2 Weight 121 kg 121 kg Results CBC & Chem 7: 08/13/23 16:12 08/14/23 08:00 Labs: Abnormal Lab Results - Last 24 Hours (Table) 08/13/23 08/13/23 08/13/23 Range/Units 15:52 16:12 16:12 Glucose 144 H (74-99) mg/dL POC Glucose (mg/dL) 136 H (70-110) mg/dL Hemoglobin A1c (<=6.0) % Calcium 10.3 H (8.4-10.2) mg/dL AST 211 H (17-59) U/L ALT 231 H (4-49) U/L Alkaline Phosphatase 163 H (38-126) U/L Creatine Kinase 193 H (55-170) U/L Troponin I 0.075 H* (0.000-0.034) ng/mL 08/14/23 08/14/23 08/14/23 Range/Units 06:14 08:00 08:00 Glucose 152 H (74-99) mg/dL POC Glucose (mg/dL) 174 H (70-110) mg/dL Hemoglobin A1c 13.3 H (<=6.0) % Calcium (8.4-10.2) mg/dL AST 212 H (17-59) U/L ALT 262 H (4-49) U/L Alkaline Phosphatase 138 H (38-126) U/L Creatine Kinase (55-170) U/L Troponin I (0.000-0.034) ng/mL 08/14/23 08/14/23 Range/Units 11:23 13:00 Glucose (74-99) mg/dL POC Glucose (mg/dL) 244 H (70-110) mg/dL Hemoglobin A1c (<=6.0) % Calcium (8.4-10.2) mg/dL AST (17-59) U/L ALT (4-49) U/L Alkaline Phosphatase (38-126) U/L Creatine Kinase (55-170) U/L Troponin I 0.047 H* (0.000-0.034) ng/mL Thrombosis Risk Factor Assmnt - Choose All That Apply Any of the Below Risk Factors Present?: Yes Each Factor Represents 1 point: Age 41-60 years, Obesity (BMI >25) Thrombosis Risk Factor Assessment Total Risk Factor Score: 2 Thrombosis Risk Factor Assessment Level: Low Risk
[2023-08-14] MEDS: HEPARIN SODIUM,PORCINE 5,000 UNIT/ML 1 ML VIAL SQ SCH (16:08)
[2023-08-14 16:28] LABS: Glucose,Whole Blood 213 mg/dL (70-110)
[2023-08-14 20:09] LABS: Glucose,Whole Blood 199 mg/dL (70-110)
[2023-08-14] MEDS ORDERED: HEPARIN SODIUM,PORCINE 5,000 UNIT/ML 1 ML VIAL SQ SCH (21:00)
[2023-08-15 06:20] LABS: Glucose,Whole Blood 191 mg/dL (70-110)
[2023-08-15 07:44] LABS: Chol/HDL Ratio 5.03 Ratio; LDL Cholesterol,Calculated 125.2 mg/dL (0.0-131.0)
--- NOTE | 2023-08-15 07:44 | US ---
EXAMINATION TYPE: US gallbladder DATE OF EXAM: 08/15/2023 COMPARISON: NONE CLINICAL INDICATION: Male, 58 years old with history of elevated liver enzymes; Elevated liver enzyme s TECHNIQUE: Multiple sonographic images of the right upper quadrant are obtained. FINDINGS: EXAM MEASUREMENTS: Liver Length: 18.6 cm Gallbladder Wall: 0.3 cm CBD: 0.4 cm Right Kidney: 12.4 x 5.4 x 5.5 cm Pancreas: Obscured by bowel gas Liver: attenuating, heterogeneous , no masses dilated ducts or cystic structures. Gallbladder: no evidence of stones Evidence for sonographic Hatch's sign: no CBD: limited evaluation Right Kidney: slightly lobulated contour, no evidence of hydronephrosis IMPRESSION: 1. No evidence for acute process. 2. Hepatic steatosis.
[2023-08-15 10:06] LABS: ALT 233 U/L (4-49); AST 140 U/L (17-59); African American GFR (CKD) >90 (>60 ml/min/1.73 sqM); Albumin 4.6 g/dL (3.5-5.0); Alkaline Phosphatase 171 U/L (38-126); Anion Gap 10 mmol/L; Blood Urea Nitrogen 19 mg/dL (9-20); Calcium 10.1 mg/dL (8.4-10.2); Carbon Dioxide 22 mmol/L (22-30); Chloride 105 mmol/L (98-107); Glucose 322 mg/dL (74-99); Non-African American GFR(CKD) >90 (>60 ml/min/1.73 sqM); Potassium 5.1 mmol/L (3.5-5.1); Sodium 137 mmol/L (137-145); Total Bilirubin 0.9 mg/dL (0.2-1.3); Total Protein 7.6 g/dL (6.3-8.2)
[2023-08-15 10:48] LABS: Hepatitis A Antibody IgM Nonreactive; Hepatitis B Core IgM Nonreactive; Hepatitis B Surface Antigen Nonreactive; Hepatitis C IgG Antibody Nonreactive
--- NOTE | 2023-08-15 11:09 | P.CRDCN ---
History of Present Illness Consult date: 08/15/23 Reason for Consult (text): Elevated trops History of present illness: History of present illness: This is 58-year-old male with PMH of CAD with previous stent followed by Dr. Guerrero at [facility] but not recently, history of DMT2, HTN, HLD, GERD. We have been asked to evaluate patient regarding elevated troponins. Patient gives history that he was here visiting his father on the fourth floor and on Wednesday he passed out went to the emergency center was found to have blood sugar of 553 and also blood pressure 192/120. Patient was discharged home but the next day he was visiting his father again he had developed some difficulty with his speech eventually was unable to get speech out went to sit down and had a syncopal episode. He has been worked up by neurology for TIA. Patient states that his speech is almost back to his baseline. Patient denies having chest pain throughout these events. EKG sinus rhythm at 115 bpm Chest x-ray: Low lung volumes with generalized hazy appearance but represent atelectasis versus pulmonary edema. CT of the brain no acute intracranial hemorrhage, mass effect or midline shift. CTA of the head and neck revealed no evidence of dissection of cervical internal carotid arteries or vertebral arteries or any evidence of significant stenosis of the carotid bifurcations. No evidence of intracranial high r grade stenosis or intracranial aneurysm. CBC INR electrolytes and renal function all within normal limits. Liver function test are elevated at AST 140, ALT 233, alkaline phosphatase 171. Troponins 0.075, 0.047 x 2. Triglycerides 163, cholesterol 197, LDL 125, HDL 39. Hepatitis panel nonreactive. Home cardiac medications: atorvastatin 80 mg daily, lisinoprilhydrochlorothiazide 20-12.5 mg daily, Lopressor 25 mg twice daily, patient also on Jardiance 25 mg daily and metformin, Victoza. Review Of Systems: At the time of my exam: CONSTITUTIONAL: Denies fever or chills. HEENT: Denies blurred vision, vision changes, or eye pain. Denies hemoptysis CARDIOVASCULAR: Denies chest pain. Denies orthopnea. Denies PND. Denies palpitations RESPIRATORY: Denies shortness of breath. GASTROINTESTINAL: Denies abdominal pain. Denies nausea or vomiting. HEMATOLOGIC: Denies bleeding disorders. GENITOURINARY: Denies any blood in urine. SKIN: Denies pruitis. Denies rash. Physical examination: Gen: This is a 58-year-old in no acute distress VS: reviewed blood pressure 145/79, heart rate 110, pulse ox 96% on room air. HEENT: Head is atraumatic, normocephalic. Pupils equal, round. Sclerae is anicteric. NECK: Supple. No JVD. LUNGS: Clear to auscultation. No wheezes or rhonchi. No intercostal retractions. HEART: Regular rate and rhythm. No murmur. ABDOMEN: Soft No tenderness. EXTREMITIES: No pedal edema. No calf tenderness. NEUROLOGICAL: Patient is awake, alert and oriented x3. Assessment: Syncope TIA with expressive aphasia NSTEMI CAD DMT2 HTN HLD GERD Plan: Continue patient's home cardiac medications Discussed option of undergoing cardiac catheterization on Wednesday or Wednesday of this week and patient would prefer to follow-up with his windows software engineer in [place]. Obtain 2-D echocardiogram and Doppler study to assess cardiac structure and function--report pending Further recommendations to follow based upon clinical course Thank you kindly for this consultation. Nurse practitioner note has been reviewed, I agree with documented findings and plan of care. Patient was seen and examined. Past Medical History Past Medical History: Diabetes Mellitus, Hypertension History of Any Multi-Drug Resistant Organisms: None Reported Past Surgical History: Adenoidectomy, Heart Catheterization With Stent, Tonsillectomy Additional Past Surgical History / Comment(s): 2 back surgeries, occular melanoma, stents x3 Past Anesthesia/Blood Transfusion Reactions: No Reported Reaction Date of Last Stent Placement:: 08/30/2017 Past Psychological History: No Psychological Hx Reported Smoking Status: Former smoker Past Alcohol Use History: Occasional Past Drug Use History: None Reported Medications and Allergies Home Medications Medication Instructions Recorded Confirmed Type Atorvastatin [Lipitor] 80 mg PO DAILY 08/13/23 08/13/23 History Cyclobenzaprine [Flexeril] 5 - 10 mg PO HS 08/13/23 08/13/23 History Empagliflozin [Jardiance] 25 mg PO DAILY 08/13/23 08/13/23 History Gabapentin 600 mg PO TID 08/13/23 08/13/23 History INSULIN LISPRO (HumaLOG) [humaLOG] 10 units SQ AC-TID 08/13/23 08/13/23 History Insulin NPH Human Isophane 40 unit SQ BID 08/13/23 08/13/23 History [humuLIN N Kwikpen] Liraglutide [Victoza 3-Kamlesh] 1.8 mg PO DAILY 08/13/23 08/13/23 History Lisinopril-Hctz 20-12.5 mg 1 tab PO DAILY 08/13/23 08/13/23 History [Zestoretic 20-12.5] Metoprolol Tartrate [Lopressor] 25 mg PO BID 08/13/23 08/13/23 History Omeprazole 20 mg PO DAILY 08/13/23 08/13/23 History Tamsulosin HCl [Flomax] 0.4 mg PO DAILY 08/13/23 08/13/23 History metFORMIN HCL 1,000 mg PO BID 08/13/23 08/13/23 History methocarbamoL [Robaxin-750] 750 mg PO TID 08/13/23 08/13/23 History oxyCODONE HCL [oxyCODONE HCL (IR)] 10 mg PO TID 08/13/23 08/13/23 History traMADol HCL 50 mg PO Q4H PRN 08/13/23 08/13/23 History Allergies Allergy/AdvReac Type Severity Reaction Status Date / Time Penicillins Allergy Anaphylaxis Verified 08/13/23 17:43 Physical Exam Vitals: Vital Signs Temp Pulse Resp BP Pulse Ox 08/15/23 04:00 97.9 F 89 19 118/81 94 L 08/14/23 23:47 97.8 F 91 19 123/74 95 08/14/23 20:00 97.9 F 100 19 106/71 98 08/14/23 15:52 97.5 F L 93 18 111/75 96 08/14/23 11:38 97.8 F 83 18 106/72 94 L Intake and Output 08/14/23 08/15/23 08/15/23 22:59 06:59 14:59 Intake Total 236 Balance 236 Intake: Oral 236 Other: Voiding Method Toilet Toilet # Voids 2 Results 08/13/23 16:12 08/15/23 09:25 Cardiac Enzymes 08/14/23 08/14/23 08/14/23 Range/Units 08:00 13:00 15:55 AST 212 H (17-59) U/L Troponin I 0.047 H* 0.047 H* (0.000-0.034) ng/mL Lipids 08/14/23 Range/Units 10:17 Triglycerides 163.00 H (0.00-149.00) mg/dL Cholesterol 197.00 (0.00-200.00) mg/dL HDL Cholesterol 39.20 L (40.00-60.00) mg/dL Cholesterol/HDL Ratio 5.03 Ratio Comprehensive Metabolic Panel 08/14/23 Range/Units 08:00 Sodium 137 (137-145) mmol/L Potassium 4.5 (3.5-5.1) mmol/L Chloride 105 (98-107) mmol/L Carbon Dioxide 25 (22-30) mmol/L BUN 14 (9-20) mg/dL Creatinine 0.66 (0.66-1.25) mg/dL Glucose 152 H (74-99) mg/dL Calcium 9.7 (8.4-10.2) mg/dL AST 212 H (17-59) U/L ALT 262 H (4-49) U/L Alkaline Phosphatase 138 H (38-126) U/L Total Protein 6.9 (6.3-8.2) g/dL Albumin 4.0 (3.5-5.0) g/dL Current Medications Generic Name Dose Route Start Last Admin Trade Name Freq PRN Reason Stop Dose Admin Aspirin 81 mg 08/14/23 13:15 08/15/23 09:26 Aspirin 81 Mg PO 81 mg DAILY RONNIE Administration Atorvastatin Calcium 80 mg 08/14/23 09:00 08/15/23 09:27 Atorvastatin 80 Mg Tab PO 80 mg DAILY RONNIE Administration Clopidogrel Bisulfate 75 mg 08/14/23 09:00 08/15/23 09:27 Clopidogrel 75 Mg Tab PO 75 mg DAILY RONNIE Administration Cyclobenzaprine HCl 5 mg 08/13/23 21:00 08/14/23 21:23 Cyclobenzaprine 5 Mg Tab PO 5 mg HS RONNIE Administration Dapagliflozin 10 mg 08/14/23 09:00 08/15/23 09:27 Dapagliflozin Propanediol 10 Mg Tablet PO 10 mg DAILY RONNIE Administration Dextrose/Water 25 ml 08/13/23 19:50 Dextrose 50% Syringe 50 Ml IVP PER PROTOCOL PRN Hypoglycemia Protocol Dextrose/Water 50 ml 08/13/23 19:50 Dextrose 50% Syringe 50 Ml IVP PER PROTOCOL PRN Hypoglycemia Protocol Gabapentin 600 mg 08/13/23 22:00 08/15/23 09:27 Gabapentin 300 Mg Cap PO 600 mg TID RONNIE Administration Lisinopril/HCTZ 1 each 08/14/23 09:00 08/15/23 09:30 Lisinopril-Hctz 20-12.5 Mg 1 Each Tab PO 1 each DAILY RONNIE Administration Heparin Sodium (Porcine) 5,000 unit 08/14/23 16:00 08/15/23 09:27 Heparin Sodium,Porcine 5,000 Unit/Ml 1 Ml Vial SQ 5,000 unit Q8HR RONNIE Administration Insulin Aspart 10 unit 08/14/23 07:30 08/15/23 09:19 Insulin Aspart (Novolog) 100 Unit/Ml Vial SQ Not Given AC-TID RONNIE Insulin Aspart 0 unit 08/13/23 21:00 08/15/23 06:25 Insulin Aspart (Novolog) 100 Unit/Ml Vial SQ 2 unit ACHS RONNIE Administration Protocol Metformin HCl 1,000 mg 08/13/23 21:00 08/15/23 09:26 Metformin 500 Mg Tab PO 1,000 mg BID RONNIE Administration Methocarbamol 750 mg 08/13/23 22:00 08/15/23 09:30 Methocarbamol 750 Mg Tab PO 750 mg TID RONNIE Administration Metoprolol Tartrate 25 mg 08/13/23 21:00 08/15/23 09:27 Metoprolol Tartrate 25 Mg Tab PO 25 mg BID RONNIE Administration Non-Formulary Medication 1.8 mg 08/14/23 09:00 08/14/23 08:39 Liraglutide [Victoza 3-Kamlesh] PO Not Given DAILY RONNIE Oxycodone HCl 10 mg 08/13/23 22:00 08/15/23 09:26 Oxycodone Hcl 5 Mg Tab PO 10 mg TID RONNIE Administration Pantoprazole Sodium 40 mg 08/14/23 09:00 08/15/23 09:27 Pantoprazole 40 Mg Tablet PO 40 mg DAILY RONNIE Administration Tamsulosin HCl 0.4 mg 08/14/23 09:00 08/15/23 09:27 Tamsulosin 0.4 Mg Cap.Er.24h PO 0.4 mg DAILY RONNIE Administration Tramadol HCl 50 mg 08/13/23 19:22 08/13/23 23:31 Tramadol 50 Mg Tab PO 50 mg Q4H PRN Administration Pain Intake and Output 08/14/23 08/15/23 08/15/23 22:59 06:59 14:59 Intake Total 236 Balance 236 Intake: Oral 236 Other: Voiding Method Toilet Toilet # Voids 2 08/13/23 16:12 08/14/23 08:00
--- NOTE | 2023-08-15 11:35 | CA ---
Transthoracic Echo Report Name: Caesar Ramachandran Age: 58 Gender: M : 1965 Exam Date: 08/14/2023 13:54 Exam Location: [facility] Ht (in): 72 Wt (lb): 266 Ordering Physician: Noble Hester MD Attending/Referring Phys: Human Development Professor Lakia Cadena RDCS Procedure CPT: Indications: tia Cardiac Hx: Hx of stents Technical Quality: Technically difficult study Contrast 1: Definity Total Dose (mL): 2 Contrast 2: Total Dose (mL): MEASUREMENTS (Male / Female) Normal Values 2D ECHO LV Diastolic Diameter PLAX 4.1 cm 4.2 - 5.9 / 3.9 - 5.3 cm LV Systolic Diameter PLAX 3.1 cm IVS Diastolic Thickness 1.4 cm 0.6 - 1.0 / 0.6 - 0.9 cm LVPW Diastolic Thickness 1.5 cm 0.6 - 1.0 / 0.6 - 0.9 cm LV Relative Wall Thickness 0.7 RV Internal Dim ED PLAX 3.2 cm LA Systolic Diameter LX 3.2 cm 3.0 - 4.0 / 2.7 - 3.8 cm LV Diastolic Volume MOD 4C 90.8 cm??? LV Systolic Volume MOD 4C 46.0 cm??? LV Ejection Fraction MOD 4C 49.3 % LV Cardiac Index MOD 4C 1708.0 cm???/min???m??? LV Diastolic Length 4C 9.2 cm LV Systolic Length 4C 7.9 cm LV Diastolic Volume MOD 2C 78.1 cm??? LV Systolic Volume MOD 2C 43.1 cm??? LV Ejection Fraction MOD 2C 44.8 % LV Cardiac Index MOD 2C 1334.5 cm???/min???m??? LV Diastolic Length 2C 9.0 cm LV Systolic Length 2C 7.8 cm LA Volume 37.1 cm??? 18 - 58 / 22 - 52 cm??? LA Volume Index 14.7 cm???/m??? 16 - 28 cm???/m??? M-MODE Aortic Root Diameter MM 3.5 cm DOPPLER AV Peak Velocity 129.3 cm/s AV Peak Gradient 6.7 mmHg MV Area PHT 3.5 cm??? Mitral E Point Velocity 71.0 cm/s Mitral A Point Velocity 88.3 cm/s Mitral E to A Ratio 0.8 MV Deceleration Time 217.1 ms FINDINGS Left Ventricle Left ventricular ejection fraction is estimated at 60-65 %. Mildly increased septal wall thickness. Left ventricular cavity size normal. Normal left ventricular wall motion. Right Ventricle Normal right ventricular size. Right ventricular systolic pressure within normal limits. Right Atrium Normal right atrial size. Left Atrium Normal left atrial size. Mitral Valve Structurally normal mitral valve. No mitral stenosis, regurgitation or prolapse. Aortic Valve Trileaflet aortic valve. No aortic valve stenosis or regurgitation. Tricuspid Valve Structurally normal tricuspid valve. No tricuspid stenosis, regurgitation or prolapse. Pulmonic Valve Structurally normal pulmonic valve. Trace pulmonic regurgitation. Pericardium No pericardial effusion. Aorta Normal size aortic root and proximal ascending aorta. CONCLUSIONS Normal LV systolic function Previewed by: Dr. Chay Koch MD (Electronically Signed) Final Date: 15 August 2023 11:34
[2023-08-15 12:24] LABS: Glucose,Whole Blood 239 mg/dL (70-110)
--- NOTE | 2023-08-15 13:16 | P.PN ---
Subjective Progress Note Date: 08/15/23 I am following-up with patient and he feels speech is improving. But at time he has some word finding difficulty. Objective - Vital Signs Vital signs: Vital Signs Temp 98.8 F 08/15/23 09:20 Pulse 110 H 08/15/23 09:20 Resp 16 08/15/23 09:20 BP 145/79 08/15/23 09:20 Pulse Ox 96 08/15/23 09:20 FiO2 Intake & Output 08/14/23 08/15/23 08/15/23 18:59 06:59 18:59 Intake Total 236 780 Balance 236 780 Intake: Oral 236 780 Other: Voiding Method Toilet Toilet # Voids 2 1 - Exam GENERAL: The patient is sitting in a recliner chair and is not in acute distress. NEUROLOGICAL: Higher mental function: The patient is awake, alert, oriented to self, place and time. Patient is following commands. No aphasia and no neglect. Cranial nerves: Left eye is removed from prior cancer. The pupil on right eye is round, 3-4mm and reactive to light. Visual field on right eye is full to confrontation. EOM on right is normal and no nystagmus. Facial sensation is normal to touch throughout. The facial strength is normal throughout. Hearing is normal bilaterally to hand rub. Tongue is midline and moved [id number] without any difficulty. No dysarthria is noted. Shoulder shrug is normal bilaterally. Motor: The strength is 5 over 5 throughout. Normal tone and bulk. Cerebellum: Normal finger to nose bilaterally. Sensation: Sensation is normal to touch throughout. Reflexes (right/left): 2+ throughout. Plantars are mute bilaterally. Some of the workup during his hospital visit consisted of: Initial serum glucose is 144 Calcium 7.3 AST of 211 and ALT of 233 CK level is 193 Hemoglobin A1c is 13.3 Ammonia <9 Lipid Panel is triglycerides 63, cholesterol is 197, LDLs 125 and HDL is 39 Phone and is not 0.047. CT of the head is reported as no acute intracranial hemorrhage, mass effect or midline shift is seen. I personally reviewed CT head and agree with report. CT angiography of the head and neck it is reported as no evidence of dissection of cervical internal carotid artery or vertebral arteries or any evidence of significant stenosis at the carotid bifurcation. No evidence of intracranial high-grade stenosis or intracranial aneurysm. 2D echo: Reported as normal systolic function. Ejection fraction of 6065%. Normal left atrial size. - Labs CBC & Chem 7: 08/13/23 16:12 08/15/23 09:25 Labs: Abnormal Lab Results - Last 24 Hours (Table) 08/14/23 08/14/23 08/14/23 Range/Units 08:00 10:17 13:00 Glucose (74-99) mg/dL POC Glucose (mg/dL) (70-110) mg/dL Hemoglobin A1c 13.3 H (<=6.0) % AST (17-59) U/L ALT (4-49) U/L Alkaline Phosphatase (38-126) U/L Troponin I 0.047 H* (0.000-0.034) ng/mL Triglycerides 163.00 H (0.00-149.00) mg/dL HDL Cholesterol 39.20 L (40.00-60.00) mg/dL 08/14/23 08/14/23 08/14/23 Range/Units 15:55 16:27 20:06 Glucose (74-99) mg/dL POC Glucose (mg/dL) 213 H 199 H (70-110) mg/dL Hemoglobin A1c (<=6.0) % AST (17-59) U/L ALT (4-49) U/L Alkaline Phosphatase (38-126) U/L Troponin I 0.047 H* (0.000-0.034) ng/mL Triglycerides (0.00-149.00) mg/dL HDL Cholesterol (40.00-60.00) mg/dL 08/15/23 08/15/23 08/15/23 Range/Units 06:18 09:25 11:59 Glucose 322 H (74-99) mg/dL POC Glucose (mg/dL) 191 H 239 H (70-110) mg/dL Hemoglobin A1c (<=6.0) % AST 140 H (17-59) U/L ALT 233 H (4-49) U/L Alkaline Phosphatase 171 H (38-126) U/L Troponin I (0.000-0.034) ng/mL Triglycerides (0.00-149.00) mg/dL HDL Cholesterol (40.00-60.00) mg/dL Assessment and Plan Assessment: This is a 58 y/o woman who presents because of expressive aphasia. In the ED he had NIH stroke scale of 3 for facial weakness and language which she improved. No IV thrombolytic since there is improvement in his symptoms. Transient expressive aphasia with facial weakness likely due to transient ischemic attack Mildly elevated LFT's (200's): unknown exact cause. He stated that he was told that he had the lesion in the liver and him not sure if this is the cause Slight elevated troponin According to patient he has history of small lesion in the liver as well as the long there were very small in the past: Unsure if they were benign vs mets vs other process History of left ocular cancer status post resection Diabetes mellitus and is uncontrolled 13.3 Hypertension History of coronary artery disease status post stent Former tobacco use Plan: I ordered MRI the brain with and without to rule out any stroke versus any mass/metastases especially with a history of the cancer. I resumed his home dose of aspirin 81mg. Then started on Plavix 75 mg daily. Patient was resumed home Lipitor 80 mg daily. Continue neuro checks Cardiac monitoring PT OT and ASSEMBLER SEMICONDUCTOR are consulted Cardiology is consulted We'll defer the rest of the medical management to primary team For DVT prophylaxis IOn subcu heparin 5000 units every 12 hours. The plan discussed with the patient and his nurse Dr. Julian will resume neurology service tomorrow A.M. Time with Patient: Less than 30
--- NOTE | 2023-08-15 13:57 | P.PN ---
Subjective Progress Note Date: 08/15/23 Patient is admitted for possibles speech problems and nonfocal weakness. CT of the head did not show any significant abnormality CT angio of the head and neck did not show any significant abnormality either patient apparently has facial paralysis and speech problem because of which she had a NIH score of 3 in ER patient although does not have any such symptoms at this time patient was admitted with neurology MRI was ordered. Patient first set of troponin slightly elevated to 0.075 without any EKG changes. Chest x-ray showed some cephalization serum BNP is only 43. Patient has elevated liver enzymes with AST of around 212 and ALT of 262. Patient denies any abdominal pain denies any alcohol abuse history. Patient denies any hepatitis history 08/15/2023 Patient is currently seen and evaluated today sitting up in the chair on the medical floor. He does report headache states it is behind his left eye socket which is a new finding patient states he does not usually get headaches. He reports this is about an 8 out of 10 throbbing in nature. He is also reporting some right-sided weakness which is appreciated on examination strength in the right upper extremity is about a 4/5. He is currently pending MRI states that he does have issues with claustrophobia and a as needed Ativan dose will be ordered to give prior to the MRI tomorrow. echocardiogram was done showing a normal LV systolic function. Bladder ultrasound was done due to the elevated LFTs showing hepatic steatosis. There is no evidence for acute process. His LFTs have remained stable, lipid panel was done showing elevated triglycerides of 163 cholesterol of 197, HDL of 39.20. Hepatitis panel was completed and non reactive in nature. He does have troponin elevation and for this reason cardiology was consulted for evaluation. Hemoglobin A1c is found to be 13.3. Review of Systems Constitutional: Denied any fatigue denied any fever. Cardio vascular: denied any chest pain, palpitations Gastrointestinal: denied any nausea, vomiting, diarrhea Pulmonary: Denied any shortness of breath cough Neurologic denied any new focal deficits orts headache behind her left eye socket. Reports right-sided weakness. Continues to report intermittent issues with finding his words and slurred speech. All inpatient medications were reviewed and appropriate changes in these medications as dictated in the interval history and assessment and plan. PHYSICAL EXAMINATION: GENERAL: The patient is alert and oriented x3, not in any acute distress. Well developed, well nourished. HEENT: Pupils are round and equally reacting to light. EOMI. No scleral icterus. No conjunctival pallor. Normocephalic, atraumatic. No pharyngeal erythema. No thyromegaly. CARDIOVASCULAR: S1 and S2 present. No murmurs, rubs, or gallops. PULMONARY: Chest is clear to auscultation, no wheezing or crackles. ABDOMEN: Soft, nontender, nondistended, normoactive bowel sounds. No palpable organomegaly. MUSCULOSKELETAL: No joint swelling or deformity. EXTREMITIES: No cyanosis, clubbing, or pedal edema. NEUROLOGICAL: right Sided weakness noted. SKIN: No rashes. Assessment and plan -Transient expressive aphasia and patient is undergoing workup for stroke. Patient is currently pending MRI which will be completed tomorrow. He is claustrophobic and as needed Ativan has been ordered. -Syncopal episode -Elevated LFTs with liver ultrasound showing fatty liver and patient does have elevated triglycerides. Would recommend diet modification and follow-up labs outpatient. -Mild troponin elevation and acute non-ST elevation MT, cardiology recommending cardiac catheterization patient would prefer to follow-up with his known installer out of [place]. -Type 2 diabetes mellitus patient resumed on home medications uncontrolled hemoglobin A1c 13.3 -Coronary artery disease -Hypertension -Gastroesophageal reflux disease DVT prophylaxis: Subcutaneous The impression and plan of care has been dictated by Paulina Francisco, Nurse Practitioner as directed. Dr. Mir MD I have performed a history and physical examination and medical decision making of this patient, discussed the same with the dictator, and agree with the dictators assessment and plan as written, documented as a scribe. Based on total visit time, I have performed more than 50% of this visit. Objective - Vital Signs Vital signs: Vital Signs Temp 97.9 F 08/15/23 04:00 Pulse 89 08/15/23 04:00 Resp 19 08/15/23 04:00 BP 118/81 08/15/23 04:00 Pulse Ox 94 L 08/15/23 04:00 FiO2 Intake & Output 08/14/23 08/15/23 08/15/23 18:59 06:59 18:59 Intake Total 236 Balance 236 Intake: Oral 236 Other: Voiding Method Toilet # Voids 2 - Labs CBC & Chem 7: 08/13/23 16:12 08/15/23 09:25 Labs: Abnormal Lab Results - Last 24 Hours (Table) 08/14/23 08/14/23 08/14/23 Range/Units 08:00 08:00 10:17 Glucose 152 H (74-99) mg/dL POC Glucose (mg/dL) (70-110) mg/dL Hemoglobin A1c 13.3 H (<=6.0) % AST 212 H (17-59) U/L ALT 262 H (4-49) U/L Alkaline Phosphatase 138 H (38-126) U/L Troponin I (0.000-0.034) ng/mL Triglycerides 163.00 H (0.00-149.00) mg/dL HDL Cholesterol 39.20 L (40.00-60.00) mg/dL 08/14/23 08/14/23 08/14/23 Range/Units 11:23 13:00 15:55 Glucose (74-99) mg/dL POC Glucose (mg/dL) 244 H (70-110) mg/dL Hemoglobin A1c (<=6.0) % AST (17-59) U/L ALT (4-49) U/L Alkaline Phosphatase (38-126) U/L Troponin I 0.047 H* 0.047 H* (0.000-0.034) ng/mL Triglycerides (0.00-149.00) mg/dL HDL Cholesterol (40.00-60.00) mg/dL 08/14/23 08/14/23 08/15/23 Range/Units 16:27 20:06 06:18 Glucose (74-99) mg/dL POC Glucose (mg/dL) 213 H 199 H 191 H (70-110) mg/dL Hemoglobin A1c (<=6.0) % AST (17-59) U/L ALT (4-49) U/L Alkaline Phosphatase (38-126) U/L Troponin I (0.000-0.034) ng/mL Triglycerides (0.00-149.00) mg/dL HDL Cholesterol (40.00-60.00) mg/dL Assessment and Plan Time with Patient: Less than 30
[2023-08-15 16:19] LABS: Glucose,Whole Blood 193 mg/dL (70-110)
[2023-08-15 20:15] LABS: Glucose,Whole Blood 256 mg/dL (70-110)
[2023-08-16 06:18] LABS: Glucose,Whole Blood 195 mg/dL (70-110)
[2023-08-16 06:27] VITALS: RESP 16
[2023-08-16] MEDS: EZETIMIBE 10 MG TAB PO SCH (10:25)
[2023-08-16 11:39] LABS: Glucose,Whole Blood 294 mg/dL (70-110)
[2023-08-16 11:45] VITALS: BMI 36.1
--- NOTE | 2023-08-16 11:57 | P.PN ---
Subjective HISTORY OF PRESENT ILLNESS: This is 58-year-old male with PMH of CAD with previous stent followed by Dr. Guerrero at [facility] but not recently, history of DMT2, HTN, HLD, GERD. We have been asked to evaluate patient regarding elevated troponins. Patient gives history that he was here visiting his father on the fourth floor and on Wednesday he passed out went to the emergency center was found to have blood sugar of 553 and also blood pressure 192/120. Patient was discharged home but the next day he was visiting his father again he had developed some difficulty with his speech eventually was unable to get speech out went to sit down and had a syncopal episode. He has been worked up by neurology for TIA. Patient states that his speech is almost back to his baseline. Patient denies having chest pain throughout these events. EKG sinus rhythm at 115 bpm Chest x-ray: Low lung volumes with generalized hazy appearance but represent atelectasis versus pulmonary edema. CT of the brain no acute intracranial hemorrhage, mass effect or midline shift. CTA of the head and neck revealed no evidence of dissection of cervical internal carotid arteries or vertebral arteries or any evidence of significant stenosis of the carotid bifurcations. No evidence of intracranial high r grade stenosis or intracranial aneurysm. CBC INR electrolytes and renal function all within normal limits. Liver function test are elevated at AST 140, ALT 233, alkaline phosphatase 171. Troponins 0.075, 0.047 x 2. Triglycerides 163, cholesterol 197, LDL 125, HDL 39. Hepatitis panel nonreactive. Home cardiac medications: atorvastatin 80 mg daily, lisino prilhydrochlorothiazide 20-12.5 mg daily, Lopressor 25 mg twice daily, patient also on Jardiance 25 mg daily and metformin, Victoza. 08/16/2023 Patient examined this morning. He is sitting on the side of the bed. Patient denies any chest pain or pressure. He denies any shortness of breath. Denies any dizziness or lightheadedness. Vital signs are stable. PHYSICAL EXAM: VITAL SIGNS: Reviewed. GENERAL: Well-developed in no acute distress. NECK: Supple. No JVD or thyromegaly LUNGS: Respirations even and unlabored. Lungs essentially clear to auscultation bilaterally. HEART: Regular rate and rhythm. S1 and S2 heard. EXTREMITIES: Normal range of motion. No clubbing or cyanosis. Peripheral pulses intact. No lower extremity edema ASSESSMENT: Syncope Suspected TIA with expressive aphasia Abnormal troponins, suspect type II CO History of coronary artery disease, details unknown Diabetes, uncontrolled, hemoglobin A1c 13 Hypertension Hyperlipidemia, uncontrolled on maximum dose of atorvastatin GERD PLAN: Continue current cardiac medications Add Zetia 10 mg daily No plans for inpatient cardiac catheterization Patient may be discharged home today from a cardiac standpoint and follow-up with his primary vacuum extractor operator out of [facility] We will sign off. Please reconsult if needed. Nurse practitioner note has been reviewed by physician. Signing provider agrees with the documented findings, assessment, and plan of care documented by AIRPORT SCREENER as a scribe. Objective - Vital Signs Vital signs: Vital Signs Temp 98.4 F 08/16/23 08:39 Pulse 100 08/16/23 08:39 Resp 16 08/16/23 08:39 BP 129/88 08/16/23 08:39 Pulse Ox 98 08/16/23 08:39 FiO2 Intake & Output 08/15/23 08/16/23 08/16/23 18:59 06:59 18:59 Intake Total 1010 118 Balance 1010 118 Weight 121 kg Intake: Oral 1010 118 Other: Voiding Method Toilet Toilet Toilet # Voids 1 1 - Labs CBC & Chem 7: 08/13/23 16:12 08/15/23 09:25 Labs: Abnormal Lab Results - Last 24 Hours (Table) 08/15/23 08/15/23 08/15/23 Range/Units 11:59 16:18 20:14 POC Glucose (mg/dL) 239 H 193 H 256 H (70-110) mg/dL 08/16/23 08/16/23 Range/Units 06:17 11:38 POC Glucose (mg/dL) 195 H 294 H (70-110) mg/dL
[2023-08-16] MEDS: LORazepam 2 MG/ML INJ IV STA (15:01)
[2023-08-16] MEDS: LORazepam 2 MG/ML INJ ONE (15:02)
[2023-08-16 16:45] VITALS: BP 105/64; PULSE 81; TEMP 97.8
[2023-08-16 16:55] LABS: Glucose,Whole Blood 192 mg/dL (70-110)
--- NOTE | 2023-08-16 17:02 | MR ---
EXAMINATION TYPE: MR brain wo/w con DATE OF EXAM: 08/16/2023 COMPARISON: None HISTORY: Stroke. Expressive aphasia. TECHNIQUE: Multiplanar, multisequence images of the brain and brainstem is performed without and with IV contras t, utilizing 12 mL intravenous Gadavist . FINDINGS: On the T1-weighted sagittal images, the midline structures including the craniovertebral junction rel ationships appear normal. The ventricles, basal cisterns and sulci over the convexities are within normal limits and there is n o mass effect or shift of midline structures There are a few scattered focal areas of abnormal increased signal intensity in the white matter of b oth cerebral hemispheres consistent with chronic ischemic white matter change.. Based on diffusion-we ighted imaging, there is no diffusion restriction or acute ischemic event. Following contrast administration, there is no pathological enhancement. The posterior fossa including the brainstem, fourth ventricle and cerebellar pontine angles appear no rmal. Intraorbital contents are normal and symmetric. Visualized paranasal sinuses and mastoid air cells ar e well aerated. IMPRESSION: 1. No acute ischemic event. 2. No mass or pathological enhancement. 3. Mild multifocal chronic ischemic white matter change.
--- NOTE | 2023-08-16 17:10 | P.PN ---
Subjective Progress Note Date: 08/16/23 Patient was initially seen by Dr. Melecio Shi. Please refer to his note for details. Patient is a 58-year-old male with expressive aphasia. Patient was seen for a follow-up. Patient is laying comfortably in the bed. He just came back from MRI. Patient denies any focal symptoms. He states that he has slight problem with the memory, as he did not remember if the nurse has already come in or not. Otherwise his speech is normal, denies any numbness tingling focal weakness. Patient mentions that he was taking aspirin but very irregularly. Out of a month, he would be taking it half of the month. Therefore patient probably was noncompliant with aspirin rather than aspirin failure. Some of the workup during his hospital visit consisted of: Initial serum glucose is 144 Calcium 7.3 AST of 211 and ALT of 233 CK level is 193 Hemoglobin A1c is 13.3 Ammonia <9 Lipid Panel is triglycerides 63, cholesterol is 197, LDLs 125 and HDL is 39 Phone and is not 0.047. CT of the head is reported as no acute intracranial hemorrhage, mass effect or midline shift is seen. I personally reviewed CT head and agree with report. CT angiography of the head and neck it is reported as no evidence of dissection of cervical internal carotid artery or vertebral arteries or any evidence of significant stenosis at the carotid bifurcation. No evidence of intracranial high-grade stenosis or intracranial aneurysm. 2D echo: Reported as normal systolic function. Ejection fraction of 60-65%. Normal left atrial size. Objective - Vital Signs Vital signs: Vital Signs Temp 97.8 F 08/16/23 16:21 Pulse 81 08/16/23 16:21 Resp 16 08/16/23 16:21 BP 105/64 08/16/23 16:21 Pulse Ox 96 08/16/23 16:21 FiO2 Intake & Output 08/15/23 08/16/23 08/16/23 18:59 06:59 18:59 Intake Total 1010 236 Balance 1010 236 Weight 121 kg Intake: Oral 1010 236 Other: Voiding Method Toilet Toilet Toilet # Voids 1 1 4 # Bowel Movements 1 - Exam GENERAL: The patient is laying comfortably in the bed. Patient is in no acute distress. NEUROLOGICAL: Higher mental function: The patient is awake, alert, oriented to self, place and time. Patient is following commands. No aphasia and no neglect. Cranial nerves: Left eye is removed from prior cancer. The pupil on right eye is round, 3-4mm and reactive to light. Visual field on right eye is full to confrontation. EOM on right is normal and no nystagmus. Facial sensation is normal to touch throughout. The facial strength is normal throughout. Hearing is normal bilaterally to hand rub. Tongue is midline and moved [id number] without any difficulty. No dysarthria is noted. Shoulder shrug is normal bilaterally. Motor: The strength is 5 over 5 throughout. Normal tone and bulk. No pronator drift. Cerebellum: Normal finger to nose bilaterally. Sensation: Sensation is normal to touch throughout. Reflexes (right/left): 2+ throughout. - Labs CBC & Chem 7: 08/13/23 16:12 08/15/23 09:25 Labs: Abnormal Lab Results - Last 24 Hours (Table) 08/15/23 08/16/23 08/16/23 Range/Units 20:14 06:17 11:38 POC Glucose (mg/dL) 256 H 195 H 294 H (70-110) mg/dL Assessment and Plan Assessment: This is a 58 y/o male who presents because of expressive aphasia. In the ED he had NIH stroke scale of 3 for facial weakness and language which she improved. No IV thrombolytic since there is improvement in his symptoms. Transient expressive aphasia with facial weakness likely due to transient ischemic attack. Patient's current NIH stroke scale is 0. Elevated LFT's (200's): unknown exact cause. Uncertain if related to statins. He stated that he was told that he had the lesion in the liver and him not sure if this is the cause Slight elevated troponin According to patient he has history of small lesion in the liver as well as the long there were very small in the past: Unsure if they were benign vs mets vs ot her process History of left ocular cancer status post resection Diabetes mellitus and is uncontrolled 13.3 Hypertension History of coronary artery disease status post stent Former tobacco use Plan: MRI the brain with and without was performed today, which on my review shows no signs of any acute stroke. No mass lesion. Await official radiology report. Patient was noncompliant with aspirin. He was taking it about half the time of the month. Recommend patient to be placed on dual antiplatelet medication with aspirin 81 mg and Plavix 75 mg daily for 21 days then stop Plavix and continue aspirin 81 mg indefinitely. Patient informed of importance of compliance with aspirin. Dr. Shi has resumed home Lipitor 80 mg daily. Patient is LFTs are elevated. If related to Lipitor, may have to hold off on the statins. Then may start at a lower dose. For now, I will decrease it down to 40 mg. If needs to be on hold, will defer to IM. Optimize control of diabetes to target A1c <7.0. Cardiac monitoring PT OT and ETL INFORMATICA DEVELOPER are consulted Cardiology is consulted We'll defer the rest of the medical management to primary team For DVT prophylaxis: On subcu heparin 5000 units every 12 hours. Neurologically clear, if the MRI comes back normal. Discussed with patient's nurse Addendum: MRI of the brain reported as no acute ischemic event. No mass or pathological enhancement. Mild multifocal chronic ischemic white matter change.
[2023-08-17] MEDS ORDERED: ATORVASTATIN 40 MG TAB PO SCH (09:00)
--- NOTE | 2023-08-20 06:10 | P.DS ---
Providers Date of admission: 08/13/23 19:20 Attending physician: Fazal Salas Consults: 08/13/23 19:21 Consult Physician Urgent Consulting Provider: Melecio Shi Consult Reason/Comments: TIA Do you want consulting provider notified?: Already Contacted Primary care physician: Stated None Hospital Course: Final Diagnosis -Transient expressive aphasia due to TIA was noncompliant with aspirin. Patient did not receive TPA as symptoms were improving in the ER. -Syncopal episode -Elevated LFTs with liver ultrasound showing fatty liver and patient does have elevated triglycerides. Would recommend diet modification and follow-up labs outpatient. Questionable reports of liver lesion per patient. -Mild troponin elevation and acute non-ST elevation CO, cardiology recommending cardiac catheterization patient would prefer to follow-up with his known concrete mixer loader truck mounted out of [place]. -Type 2 diabetes mellitus patient resumed on home medications uncontrolled hemoglobin A1c 13.3 -Coronary artery disease with prior stenting -Hypertension -Gastroesophageal reflux disease -Left ocular cancer post resection Discharge disposition Continue on aspirin 81 mg daily and plavix 75 mg daily for primary stroke prevention. Patient should stop plavix after 21 days and continue on asprin 81 mg daily indefinitely. Continue on statin therapy and zetia 10 mg daily has been added. Recommend diet modifications. Gallbladder ultrasound shows evidence of fatty liver. Recommend to repeat CMP as an outpatient on follow up with PCP. IF remains elevated consider holding statin or decreasing dose to 40 mg daily. Patient wanting to speak with his PCP regarding recommendations for neurologist closer to where he lives. He will follow up with his own concrete mixer loader truck mounted. -Target A1C less than 7.0. Hospital Course Patient is admitted for speech problems and nonfocal weakness. CT of the head did not show any significant abnormality CT angio of the head and neck did not show any significant abnormality either patient apparently has facial paralysis and speech problem because of which had a NIH score of 3 in ER. Patient was admitted to medicine with neurology consultation. Patient first set of troponin slightly elevated to 0.075 without any EKG changes. Chest x-ray showed some cephalization serum BNP is only 43. Patient has elevated liver enzymes with AST of around 212 and ALT of 262. Patient denies any abdominal pain denies any alcohol abuse history. Patient denies any hepatitis history. Echocardiogram was done showing a normal LV systolic function. Gallbladder ultrasound was done due to the elevated LFTs showing hepatic steatosis. There is no evidence for acute process. His LFTs have remained stable, lipid panel was done showing elevated triglycerides of 163 cholesterol of 197, HDL of 39.20. Hepatitis panel was completed and nonreactive in nature. He does have troponin elevation and for this reason cardiology was consulted for evaluation. Hemoglobin A1c is found to be 13.3. Symptoms have improved, headache is gone, patients speech is improving. He feels he is findings his words easier. Brain MRI showing no acute findings, no mass or pathological enhancement, mild multifocal chronic ischemic white matter change. Neurology recommendations as above. No chest pain, no shortness of breath. Alert x 3, no focal deficit. Patient will be discharged home. Please see medication reconciliation for a list of current medication. Thank you for allowing us to participate in the care of this patient. The impression and plan of care has been dictated by Paulina Francisco, Nurse Practitioner as directed. Dr. Mir MD I have performed a history and physical examination and medical decision making of this patient, discussed the same with the dictator, and agree with the di ctators assessment and plan as written, documented as a scribe. Based on total visit time, I have performed more than 50% of this visit. Patient Condition at Discharge: Stable Plan - Discharge Summary Discharge Rx Participant: No New Discharge Prescriptions: New Ezetimibe [Zetia] 10 mg PO DAILY #30 tab Aspirin 81 mg PO DAILY #30 tab Clopidogrel [Plavix] 75 mg PO DAILY #30 tablet Continue Atorvastatin [Lipitor] 80 mg PO DAILY Empagliflozin [Jardiance] 25 mg PO DAILY Gabapentin 600 mg PO TID INSULIN LISPRO (HumaLOG) [humaLOG] 10 units SQ AC-TID Liraglutide [Victoza 3-Kamlesh] 1.8 mg PO DAILY metFORMIN HCL 1,000 mg PO BID methocarbamoL [Robaxin-750] 750 mg PO TID Cyclobenzaprine [Flexeril] 5 - 10 mg PO HS Insulin NPH Human Isophane [humuLIN N Kwikpen] 40 unit SQ BID Lisinopril-Hctz 20-12.5 mg [Zestoretic 20-12.5] 1 tab PO DAILY Metoprolol Tartrate [Lopressor] 25 mg PO BID Omeprazole 20 mg PO DAILY oxyCODONE HCL [oxyCODONE HCL (IR)] 10 mg PO TID Tamsulosin HCl [Flomax] 0.4 mg PO DAILY traMADol HCL 50 mg PO Q4H PRN PRN Reason: Pain Discharge Medication List Atorvastatin [Lipitor] 80 mg PO DAILY 08/13/23 [History] Cyclobenzaprine [Flexeril] 5 - 10 mg PO HS 08/13/23 [History] Empagliflozin [Jardiance] 25 mg PO DAILY 08/13/23 [History] Gabapentin 600 mg PO TID 08/13/23 [History] INSULIN LISPRO (HumaLOG) [humaLOG] 10 units SQ AC-TID 08/13/23 [History] Insulin NPH Human Isophane [humuLIN N Kwikpen] 40 unit SQ BID 08/13/23 [History] Liraglutide [Victoza 3-Kamlesh] 1.8 mg PO DAILY 08/13/23 [History] Lisinopril-Hctz 20-12.5 mg [Zestoretic 20-12.5] 1 tab PO DAILY 08/13/23 [History] Metoprolol Tartrate [Lopressor] 25 mg PO BID 08/13/23 [History] Omeprazole 20 mg PO DAILY 08/13/23 [History] Tamsulosin HCl [Flomax] 0.4 mg PO DAILY 08/13/23 [History] metFORMIN HCL 1,000 mg PO BID 08/13/23 [History] methocarbamoL [Robaxin-750] 750 mg PO TID 08/13/23 [History] oxyCODONE HCL [oxyCODONE HCL (IR)] 10 mg PO TID 08/13/23 [History] traMADol HCL 50 mg PO Q4H PRN 08/13/23 [History] Aspirin 81 mg PO DAILY #30 tab 08/16/23 [Rx] Clopidogrel [Plavix] 75 mg PO DAILY #30 tablet 08/16/23 [Rx] Ezetimibe [Zetia] 10 mg PO DAILY #30 tab 08/16/23 [Rx] Follow up Appointment(s)/Referral(s): Tom Olmedo DO [REFERRING] - 1-2 Days None,Stated [Primary Care Provider] - 1-2 days Ambulatory/Diagnostic Orders: Comprehensive Metabolic Panel [LAB.AMB] Time Frame: 3 Days, Location: None Selected Patient Instructions/Handouts: Transient Ischemic Attack (DC), Non-Alcoholic Fatty Liver Disease (DC), Stroke (DC) Activity/Diet/Wound Care/Special Instructions: Follow up with your known concrete mixer loader truck mounted Establish care with a neurologist. Continue on aspirin 81 mg daily and plavix 75 mg daily for primary stroke prevention. Continue on statin therapy and zetia 10 mg daily has been added. Recommend diet modifications. Gallbladder ultrasound shows evidence of fatty liver. Activity limited until follow up Discharge Disposition: HOME SELF-CARE
== END 2023-08-16 19:12 | disposition home or self-care (01) ==
LOC: EC 15:49 → 3SCARD 19:20
PROVIDERS: ADMIT Hospitalist; ATTEND Hospitalist
DX: G45.9 Transient cerebral ischemic attack, unspecified (principal); I21.4 Non-ST elevation (NSTEMI) myocardial infarction; E11.65 Type 2 diabetes mellitus with hyperglycemia; I25.10 Atherosclerotic heart disease of native coronary artery without angina pectoris; I10 Essential (primary) hypertension; K76.0 Fatty (change of) liver, not elsewhere classified; E78.1 Pure hyperglyceridemia; E78.5 Hyperlipidemia, unspecified; K21.9 Gastro-esophageal reflux disease without esophagitis; F40.240 Claustrophobia; Z91.148 Patient's other noncompliance with medication regimen for other reason; Z79.84 Long term (current) use of oral hypoglycemic drugs; Z79.4 Long term (current) use of insulin; Z79.899 Other long term (current) drug therapy; Z79.82 Long term (current) use of aspirin; Z88.0 Allergy status to penicillin; Z95.5 Presence of coronary angioplasty implant and graft; Z87.891 Personal history of nicotine dependence; Z85.820 Personal history of malignant melanoma of skin
CPT/HCPCS: 96372 ×3; 96375; 96374; 99291; 36415; 93005; 93306; 97116; 97162; 97165; 83880; 80061; 80053 ×3; 80074; 82140; 82550; 84484 ×2; 85025; 85610; 85730; 83036; 71046; 76705; 70496; 70450; 70498; 70553; G0378 ×4; J2060; J1644 ×3; Q9957; J1170; Q9967; A9585